=== PATIENT | female | born 1980 | race Caucasian/White ===

== ENCOUNTER 2017-02-07 10:24 | Outpatient (RCR) | payer MEDICAID ==
[~2017-02-07 10:24] MED LIST: AMOX500C2 PO; AZIT500T PO; BIRTH CONTROL PO; BUTA1TAB55 PO; CEPH500C PO; CYCL10TA9 PO; FLUC100T PO; HYDR-34 PO; HYDR-3812 PO; HYDR1TAB75 PO; IBP600T1 PO; IBP800T PO; IBUP800T26 PO; METR500T PO; NAPR-243 PO; NITR-65 PO; NITR100C PO; ONDA8TAB13 PO; PHEN200T27 PO; PREN1TAB39 PO; SULF1TAB38 PO; TRAM50TA2 PO
== END 2017-02-21 14:08 | disposition home or self-care (01) ==
PROVIDERS: ATTEND Nurse Practitioner
DX: M41.9 Scoliosis, unspecified (principal)

== ENCOUNTER 2017-03-06 10:10 | Emergency (ER) | payer MEDICAID ==
[~2017-03-06] VITALS: Ht 172.7 cm; Wt 104.3 kg
--- OUTSIDE RECORDS SUMMARY | 2017-03-06 10:15 | XMS REPORT | Continuity of Care Document ---
Author Author [facility] Organization [facility] Address Unknown Phone Unavailable Allergies Active Description Code Type Severity Reaction Onset Reported/Identified Relationship to Patient Clinical Status Yes No Known Drug Allergies [id number] Drug Allergy Unknown N/ A 05/01/2010 Medications Problems Date Dx Coded Attending Type Code Diagnosis Diagnosed By 01/30/2012 Ot 569.42 ANAL OR RECTAL PAIN 01/30/2012 Ot 922.4 CONTUSION GENITAL ORGANS 01/30/2012 Ot E000.8 OTHER EXTERNAL CAUSE STATUS 01/30/2012 Ot E928.9 ACCIDENT NOS 04/21/2012 Ot 724.2 LUMBAGO 04/21/2012 Ot 847.2 SPRAIN LUMBAR REGION 04/21/2012 Ot E000.8 OTHER EXTERNAL CAUSE STATUS 04/21/2012 Ot E927.0 OVEREXERTION FROM SUDDEN STRENUOUS MOVEM 06/02/2012 Ot 305.1 TOBACCO USE DISORDER 06/02/2012 Ot 511.0 PLEURISY W/O EFFUS OR TB 06/02/2012 Ot 786.50 CHEST PAIN NOS 12/10/2012 JANEEN DESAI MD Ot 599.0 URIN TRACT INFECTION NOS 12/10/2012 JANEEN DESAI MD Ot 625.9 FEM GENITAL SYMPTOMS NOS 12/10/2012 JANEEN DESAI MD Ot 640.03 THREATEN ABORT-ANTEPART 12/10/2012 JANEEN DESAI MD Ot 646.63 INFECTION-ANTEPARTUM 04/12/2013 MICHELLE DO, MERLENE K Ot 671.83 VENOUS COMPL NEC-ANTEPAR 12/02/2013 VALARIE ESCOBAR MD Ot 599.70 HEMATURIA, UNSPECIFIED 12/02/2013 VALARIE ESCOBAR MD Ot 789.00 ABDOMINAL PAIN, UNSPECIFIED SITE 02/08/2014 CHUCHO ART Ot 112.1 CANDIDAL VULVOVAGINITIS 02/08/2014 CHUCHO ART Ot 616.0 CERVICITIS 02/08/2014 CHUCHO ART Ot 625.9 FEM GENITAL SYMPTOMS NOS 05/06/2014 CHUCHO ART Ot 276.51 DEHYDRATION 05/06/2014 CHUCHO ART Ot 599.0 URIN TRACT INFECTION NOS 05/06/2014 CHUCHO ART Ot 724.5 BACKACHE NOS 08/04/2015 JANEEN DESAI MD Ot K80.20 CALCULUS OF GALLBLADDER W/O CHOLECYSTITI 08/04/2015 JANEEN DESAI MD Ot K85.9 ACUTE PANCREATITIS, UNSPECIFIED 01/10/2017 Ot 626.0 ABSENCE OF MENSTRUATION 01/31/2017 JAGUAR RAJPUT Ot M41.9 SCOLIOSIS, UNSPECIFIED 02/04/2017 JAGUAR RAJPUT Ot M41.9 SCOLIOSIS, UNSPECIFIED 02/23/2017 JAGUAR RAJPUT Ot M41.9 SCOLIOSIS, UNSPECIFIED Procedures Results Encounters ACCT No. Visit Date/Time Discharge Status Pt. Type Provider Facility Loc./Unit Complaint [id number] 02/07/2017 10:24:00 2016 14:08:00 DIS Outpatient JAGUAR RAJPUT [facility] REHAB BACK PAIN/STIFFNESS;KYPHOSIS; SCOLIOSIS [id number] 08/04/2015 06:37:00 2015 10:07:00 DIS Emergency JANEEN DESAI MD [facility] ER CHEST PAIN [id number] 05/06/2014 17:06:00 2013 18:24:00 DIS Emergency CHUCHO ART [facility] ER BACK PAIN [id number] 02/08/2014 16:29:00 2013 18:33:00 DIS Emergency CHUCHO ART [facility] ER POSS ABSCESS [id number] 12/02/2013 01:40:00 2013 03:16:00 DIS Emergency VALARIE ESCOBAR MD [facility] ER ABD/BACK PAIN [id number] 04/12/2013 21:55:00 2012 22:35:00 DIS Outpatient MERLENE MARTINEZ DO K [facility] WSo 25 WKS; BLEEDING [id number] 02/12/2013 16:14:00 2012 23:59:59 CLS Outpatient [id number] 12/09/2012 23:35:00 2012 01:02:00 DIS Emergency JANEEN DESAI MD [facility] ER 7 WKS PREG; LOWER ABD PAIN [id number] 06/27/2012 10:13:00 Document Registration [id number] 06/02/2012 07:40:00 Document Registration [id number] 04/21/2012 18:40:00 Document Registration [id number] 01/30/2012 06:45:00 Document Registration
[2017-03-06] MEDS ORDERED: PROP40TA5 (10:34)
[2017-03-06] MEDS ORDERED: TOPI100T11 (10:34)
[2017-03-06] MEDS ORDERED: SUMA100T3 (10:34)
[2017-03-06] MEDS ORDERED: TOPI50TA13 (10:34)
[2017-03-06] MEDS ORDERED: HYDR12.5 (10:34)
[2017-03-06] MEDS ORDERED: ARIP5TAB20 (10:34)
[2017-03-06] MEDS ORDERED: MELO15TA39 (10:34)
--- NOTE | 2017-03-06 11:04 | ED Abdominal Pain ---
General Chief Complaint: Abdominal/GI Problems Stated Complaint: R SIDE LOWER BACK PAIN/FREQUENT URINATION Nursing Triage Note: ARRIVED VIA AMB TO ROOM 07 WITH COMPLAINTS OF RIGHT SIDED ABD PAIN THAT STARTED AT 0700 TODAY. STATES IT FEELS LIKE A KIDNEY STONE. Sepsis Screen: No Definite Risk Source of Information: Patient Exam Limitations: No Limitations History of Present Illness Time Seen By Provider: 11:02 Initial Comments This 36-year-old white female presents with right-sided flank pain consistent with her previous kidney stones. The patient has had no fever or chill. She denies headache, stiff neck, productive cough, palpitations or chest pain, vomiting or diarrhea. Inpatient is complaining of severe sharp right flank pain that is nonradiating. Allergies and Home Medications Allergies Coded Allergies: No Known Drug Allergies (Unverified , 05/02/10) Home Medications Aripiprazole 5 Mg Tablet, (Reported) Hydrochlorothiazide 12.5 Mg Capsule, (Reported) Meloxicam 15 Mg Tablet, (Reported) Propranolol HCl 40 Mg Tablet, (Reported) Sumatriptan Succinate 100 Mg Tablet, (Reported) Topiramate 50 Mg Tablet, (Reported) Topiramate 100 Mg Tablet, (Reported) Review of Systems Constitutional: No chills, No fever, No weakness EENTM: No Blurred Vision Respiratory: Denies Cough Cardiovascular: Denies Chest Pain Gastrointestinal: See HPI, Nausea Genitourinary: Denies Burning, Denies Frequency, Flank Pain Musculoskeletal: back pain Skin: No rash Psychiatric/Neurological: No Symptoms Reported Endocrine: No Symptoms Reported Hematologic/Lymphatic: No Symptoms Reported Past Uulwgov-Viacdd-Eectob Hx Patient Social History Alcohol Use: Occasionally Uses Recreational Drug Use: No Smoking Status: Former Smoker Recent Foreign Travel: No Contact w/Someone Who Travel: No Recent Infectious Disease Expo: No Recent Hopitalizations: Yes (VAGINAL DELIVERIES X 2) Immunizations Up To Date Tetanus Booster (TDap): Unknown Date of Influenza Vaccine: Mar 13, 2014 Seasonal Allergies Seasonal Allergies: No Surgeries History of Surgeries: Yes Surgeries: Gallbladder Respiratory History of Respiratory Disorde: No Currently Using CPAP: No Currently Using BIPAP: No Cardiovascular History of Cardiac Disorders: Yes Cardiac Disorders: Hypertension Neurological History of Neurological Disord: No Reproductive System : No Hx Reproductive Disorders: 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 Genitourinary History of Genitourinary Disor: No Genitourinary Disorders: Kidney Stones, UTI-Chronic Gastrointestinal History of Gastrointestinal Di: No Musculoskeletal History of Musculoskeletal Dis: Yes (KYPHOSIS) Musculoskeletal Disorders: Chronic Back Pain Endocrine History of Endocrine Disorders: No Cancer History of Cancer: No Psychosocial History of Psychiatric Problem: Yes Behavioral Health Disorders: ADD/ADHD, Anxiety, Depression Integumentary History of Skin or Integumenta: No Blood Transfusions History of Blood Disorders: No Adverse Reaction to a Blood Tr: No Reviewed Nursing Assessment Reviewed/Agree w Nursing PMH: Yes Family Medical History Significant Family History: No Pertinent Family Hx Physical Exam Vital Signs VS - Last 72 Hours, by Label 03/06/17 10:20 Temp 98.0 Pulse 65 Resp 18 B/P (MAP) 121/72 Pulse Ox 98 Capillary Refill : Less Than 3 Seconds General Appearance: WD/WN, no apparent distress HEENT: normal ENT inspection Neck: non-tender, full range of motion Respiratory: chest non-tender, lungs clear Cardiovascular: regular rate, rhythm Gastrointestinal: normal bowel sounds, non tender, soft Extremities: normal range of motion, non-tender Back: normal inspection, CVA tenderness (R) Neurologic/Psychiatric: no motor/sensory deficits, alert, normal mood/affect, oriented x 3 Progress/Results/Core Measures Results/Orders Lab Results Laboratory Tests Test 03/06/17 10:20 03/06/17 11:30 Range/Units Urine Color YELLOW Urine Clarity VERY CLOUDY H Urine pH 5 5-9 Urine Specific [place] 1.025 H 1.016-1.022 Urine Protein 2+ H NEGATIVE Urine Glucose (UA) NEGATIVE NEGATIVE Urine Ketones 1+ H NEGATIVE Urine Nitrite POSITIVE H NEGATIVE Urine Bilirubin 1+ H NEGATIVE Urine Urobilinogen NORMAL NORMAL MG/DL Urine Leukocyte Esterase 2+ H NEGATIVE Urine RBC (Auto) 5+ H NEGATIVE Urine RBC TNTC H /HPF Urine WBC 5-10 H /HPF Urine Crystals NONE /LPF Urine Bacteria LARGE H /HPF Urine Casts PRESENT /LPF Urine White Blood Cell Casts RARE H /LPF Urine Mucus SMALL H /LPF Urine Yeast MODERATE H /HPF Urine Culture Indicated YES Urine Test NEGATIVE NEGATIVE White Blood Count 7.4 4.3-11.0 10^3/uL Red Blood Count 3.45 L 4.35-5.85 10^6/uL Hemoglobin 11.2 L 11.5-16.0 G/DL Hematocrit 33 L 35-52 % Mean Corpuscular Volume 96 80-99 FL Mean Corpuscular Hemoglobin 33 25-34 PG Mean Corpuscular Hemoglobin Concent 34 32-36 G/DL Red Cell Distribution Width 14.3 10.0-14.5 % Platelet Count 269 130-400 10^3/uL Mean Platelet Volume 10.6 H 7.4-10.4 FL Neutrophils (%) (Auto) 64 42-75 % Lymphocytes (%) (Auto) 24 12-44 % Monocytes (%) (Auto) 10 0-12 % Eosinophils (%) (Auto) 2 0-10 % Basophils (%) (Auto) 1 0-10 % Neutrophils # (Auto) 4.7 1.8-7.8 X 10^3 Lymphocytes # (Auto) 1.8 1.0-4.0 X 10^3 Monocytes # (Auto) 0.7 0.0-1.0 X 10^3 Eosinophils # (Auto) 0.1 0.0-0.3 10^3/uL Basophils # (Auto) 0.0 0.0-0.1 10^3/uL Sodium Level 140 135-145 MMOL/L Potassium Level 3.6 3.6-5.0 MMOL/L Chloride Level 109 H 98-107 MMOL/L Carbon Dioxide Level 22 21-32 MMOL/L Anion Gap 9 5-14 MMOL/L Blood Urea Nitrogen 25 H 7-18 MG/DL Creatinine 0.83 0.60-1.30 MG/DL Estimat Glomerular Filtration Rate > 60 BUN/Creatinine Ratio 30 Glucose Level 119 H 70-105 MG/DL Calcium Level 9.1 8.5-10.1 MG/DL Total Bilirubin 0.4 0.1-1.0 MG/DL Aspartate Amino Transf (AST/SGOT) 14 5-34 U/L Alanine Aminotransferase (ALT/SGPT) 26 0-55 U/L Alkaline Phosphatase 61 40-136 U/L Total Protein 6.6 6.4-8.2 GM/DL Albumin 3.6 3.2-4.5 GM/DL My Orders Orders - ALVERTO VIZCAINO MD Ct Abd/Pelvis Wo(Kidney Stone) (03/06/17 11:05) Fentanyl Injection (Sublimaze Injection (03/06/17 11:15) Ondansetron Injection (Zofran Injectio (03/06/17 11:15) Hcg,Qualitative Urine (03/06/17 10:20) Ceftriaxone Injection (Rocephin Injectio (03/06/17 12:30) Medications Given in ED Current Medications Medications Dose Ordered Sig/Radha Route Start Time Stop Time Status Last Admin Dose Admin Ceftriaxone Sodium 2000 mg/ Sodium Chloride 50 ml @ 100 mls/hr ONCE ONCE IV 03/06/17 12:30 03/06/17 12:59 DC 03/06/17 12:57 100 MLS/HR Fentanyl Citrate 50 mcg ONCE ONCE IVP 03/06/17 11:15 03/06/17 11:16 DC 03/06/17 11:31 50 MCG Ondansetron HCl 4 mg ONCE ONCE IVP 03/06/17 11:15 03/06/17 11:16 DC 03/06/17 11:32 4 MG Vital Signs/I&O Vital Sign - Last 12Hours 03/06/17 10:20 Temp 98.0 Pulse 65 Resp 18 B/P (MAP) 121/72 Pulse Ox 98 Blood Pressure Mean: 88 Progress Note : Time: 13:37 Progress Note The patient demonstrated a significant urinary tract infection. The patient's CT of the abdomen for kidney stone demonstrated an obstructing kidney stone. Patient received 2 g of Rocephin IV. Departure Impression Impression: Primary Impression: Pyelonephritis Additional Impression: Kidney stone on right side Disposition: 01 HOME, SELF-CARE Condition: Improved Departure-Patient Inst. Decision time for Depature: 13:40 Referrals: ANGELICA MENDES MD (PCP) Primary Care Physician SANDOVAL THOMAS MD Patient Instructions: Kidney Stones in Adults, Urinary Tract Infection, Adult ( DC) Add. Discharge Instructions: Keflex and Vicodin as prescribed. Close follow-up with your doctor or Dr. Thomas early next week. Return if any problems or questions. All discharge instructions reviewed with patient and/or family. Voiced understanding. ALVERTO VIZCAINO MD Mar 06, 2017 11:04
[2017-03-06] MEDS ORDERED: ONDANSETRON 4 MG/2 ML (SDV) Z0FRAN IVP ONE ×2 (11:15→14:00)
[2017-03-06] MEDS ORDERED: fentaNYL INJECTION 100 MCG/2 ML AMP IVP ONE (11:15)
[2017-03-06 11:42] LABS: KETONES,URINE 1+ (NEGATIVE); LEUKOCYTE ESTERASE ,URINE 2+ (NEGATIVE); NITRITE,URINE POSITIVE (NEGATIVE); PH,URINE 5 (5-9); PROTEIN,URINE 2+ (NEGATIVE); UROBILINOGEN,URINE NORMAL (NORMAL)
[2017-03-06 11:44] LABS: BASOPHILS % (AUTO) 1 % (0-10); EOSINOPHILS # (AUTO) 0.1 10^3/uL (0.0-0.3); EOSINOPHILS % (AUTO) 2 % (0-10); LYMPHOCYTES # (AUTO) 1.8 X 10^3 (1.0-4.0); LYMPHOCYTES % (AUTO) 24 % (12-44); MEAN CORPUSCULAR HEMOGLOBIN 33 PG (25-34); MEAN CORPUSCULAR HGB CONC 34 G/DL (32-36); MEAN CORPUSCULAR VOLUME 96 FL (80-99); MEAN PLATELET VOLUME 10.6 FL (7.4-10.4); MONOCYTES # (AUTO) 0.7 X 10^3 (0.0-1.0); MONOCYTES % (AUTO) 10 % (0-12); NEUTROPHILS # (AUTO) 4.7 X 10^3 (1.8-7.8); NEUTROPHILS % (AUTO) 64 % (42-75); PLATELET COUNT 269 10^3/uL (130-400); RED BLOOD COUNT 3.45 10^6/uL (4.35-5.85); RED CELL DISTRIBUTION WIDTH 14.3 % (10.0-14.5); WHITE BLOOD COUNT 7.4 10^3/uL (4.3-11.0)
[2017-03-06 11:53] LABS: WHITE BLOOD CELL CASTS, URINE RARE /LPF
[2017-03-06 11:54] LABS: YEAST,URINE MODERATE /HPF
[2017-03-06 12:07] LABS: ALANINE AMINOTRANSFERASE 26 U/L (0-55); ALBUMIN 3.6 GM/DL (3.2-4.5); ANION GAP 9 MMOL/L (5-14); ASPARTATE AMINO TRANSFERASE 14 U/L (5-34); BILIRUBIN,TOTAL 0.4 MG/DL (0.1-1.0); BLOOD UREA NITROGEN 25 MG/DL (7-18); BUN/CREATININE RATIO 30; CALCIUM 9.1 MG/DL (8.5-10.1); CARBON DIOXIDE 22 MMOL/L (21-32); CHLORIDE 109 MMOL/L (98-107); CREATININE SERUM 0.83 MG/DL (0.60-1.30); GFR ESTIMATED > 60; GLUCOSE 119 MG/DL (70-105); POTASSIUM 3.6 MMOL/L (3.6-5.0); SODIUM 140 MMOL/L (135-145); TOTAL PROTEIN 6.6 GM/DL (6.4-8.2)
--- NOTE | 2017-03-06 12:19 | Diagnostic Imaging Report ---
PROCEDURE: CT urinary tract, rule out kidney stone. TECHNIQUE: Multiple contiguous axial images were obtained through the abdomen and pelvis without the use of intravenous contrast. INDICATION: One day history of right flank pain. CORRELATION STUDY: 08/04/2015 FINDINGS: LIVER: Unremarkable. GALLBLADDER: Absent with clips in the fossa. SPLEEN: Unremarkable. PANCREAS: Unremarkable. ADRENAL GLANDS: Unremarkable. KIDNEYS: 3 mm stone in the distal aspect of the left ureter just proximal to the ureterovesical junction results in mild obstructive uropathy. The right kidney is mild to moderately engorged. Left kidney contains several 2-3 mm nonobstructing stones. Left collecting system unremarkable. ABDOMINAL AORTA: Unremarkable, nonaneurysmal. GASTROINTESTINAL TRACT: No obstruction or inflammation. Normal appendix. URINARY BLADDER: Relatively decompressed. REPRODUCTIVE: Uterus contains an intrauterine contraceptive device. There is abnormal fullness of the right ovary likely a cyst measuring approximately 4 cm. Left ovary also slightly prominent. No free pelvic fluid. OSSEOUS STRUCTURES: No acute abnormality. IMPRESSION: 1. Mild right-sided obstructive uropathy owing to an approximately 3 mm stone in the distal right ureter. 2. Nonobstructing left renal stones present. 3. Enlarged right ovary likely owing to approximately 4 cm cyst. 4. Interval cholecystectomy changes. Dictated by: Dictated on workstation # [id number]
[2017-03-06] MEDS ORDERED: cefTRIAXone INJECTION 2,000 MG in NS (IVPB) 50 ML IV ONE (12:30)
[2017-03-06 14:10] VITALS: BP 140/71
[2017-03-07 07:01] LABS: BILIRUBIN,URINE 1+ (NEGATIVE)
== END 2017-03-06 14:10 | disposition home or self-care (01) ==
LOC: EDUNIT# 10:10 → ER 10:11
DX: N20.0 Calculus of kidney (principal); I10 Essential (primary) hypertension; F90.9 Attention-deficit hyperactivity disorder, unspecified type; F41.9 Anxiety disorder, unspecified; F32.9 Major depressive disorder, single episode, unspecified; Z97.5 Presence of (intrauterine) contraceptive device; Z87.440 Personal history of urinary (tract) infections; Z87.891 Personal history of nicotine dependence
CPT/HCPCS: 36415; 74176; 80053; 81000; 84703; 85025; 87088

== ENCOUNTER 2017-03-18 02:14 | Emergency (ER) | payer MEDICAID ==
[~2017-03-18] VITALS: Ht 172.7 cm; Wt 106.6 kg
[~2017-03-18 02:14] MED LIST changes: +ARIP5TAB20; +HYDR12.5; +MELO15TA39; +PROP40TA5; +SUMA100T3; +TOPI100T11; +TOPI50TA13
--- NOTE | 2017-03-18 03:06 | ED GI ---
General Chief Complaint: General Problems/Pain Stated Complaint: CHILLS THEN HOT,NAUSEA,DIZZY,DIARRHEA Nursing Triage Note: PT TO ED 9 W/ C/O "FLU LIKE SYMPTOMS". C/O NAUSEA, BELCHING ET DIARRHEA FOR A "COUPLE OF DAYS". ALSO REPORTS SHE THINKS HER BOYFRIEND "DISLODGED HER IUD" AND MAY BE . NO OTHER C/O VOICED Sepsis Screen: No Definite Risk Source of Information: Patient Exam Limitations: No Limitations History of Present Illness Time Seen By Provider: 02:57 Initial Comments Patient presents to ER by private conveyance with a chief complaint that for the past 2-3 days she's been having progressively worsening malaise, body aches and loose stools with some nausea. She's not had any vomiting but she had a bout of abdominal discomfort and diarrhea tonight without any blood in it or black tarry parents that concerned her so she said That the ER. She has Zofran at home but has not taken any. No significant surgical history other than having her gallbladder removed. No other significant medical history. She says she had her flu shot this year. She's had chills but notes objective fever. No sick contacts. She is unsure if she could be as she thinks her boyfriend may have dislodged her IUD. Patient recently had a kidney stone was put on antibiotics which she just completed yesterday. Allergies and Home Medications Allergies Coded Allergies: No Known Drug Allergies (Unverified , 05/02/10) Home Medications Aripiprazole 5 Mg Tablet, (Reported) Hydrochlorothiazide 12.5 Mg Capsule, (Reported) Meloxicam 15 Mg Tablet, (Reported) Propranolol HCl 40 Mg Tablet, (Reported) Sumatriptan Succinate 100 Mg Tablet, (Reported) Topiramate 50 Mg Tablet, (Reported) Topiramate 100 Mg Tablet, (Reported) Review of Systems Constitutional: chills, No diaphoresis, No fever, malaise EENTM: No Blurred Vision, No Double Vision, No Eye Pain Respiratory: Denies Cough, Denies Shortness of Air Cardiovascular: Denies Chest Pain, Denies Lightheadedness Gastrointestinal: Denies Abdomen Distended, Denies Abdominal Pain, Denies Constipated, Diarrhea, Nausea, Denies Vomiting Genitourinary: Denies Burning, Denies Discharge Musculoskeletal: No back pain, No joint pain Skin: No pruritus, No rash Psychiatric/Neurological: Denies Headache, Denies Numbness, Denies Paresthesia Past Mbbmkkd-Ttznts-Apsybg Hx Patient Social History Alcohol Use: Occasionally Uses Recreational Drug Use: No Smoking Status: Former Smoker Former Smoker, Quit: Dec 14, 2016 Recent Foreign Travel: No Contact w/Someone Who Travel: No Recent Infectious Disease Expo: No Recent Hopitalizations: Yes (VAGINAL DELIVERIES X 2) Physical Abuse: No Sexual Abuse: No Mistreated: No Fear: No Immunizations Up To Date Tetanus Booster (TDap): Unknown Date of Influenza Vaccine: Mar 13, 2014 Seasonal Allergies Seasonal Allergies: No Surgeries History of Surgeries: Yes Surgeries: Gallbladder Respiratory History of Respiratory Disorde: No Currently Using CPAP: No Currently Using BIPAP: No Cardiovascular History of Cardiac Disorders: Yes Cardiac Disorders: Hypertension Neurological History of Neurological Disord: No Reproductive System Hx Reproductive Disorders: 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 Genitourinary History of Genitourinary Disor: No Genitourinary Disorders: Kidney Stones, UTI-Chronic Gastrointestinal History of Gastrointestinal Di: No Musculoskeletal History of Musculoskeletal Dis: Yes (KYPHOSIS) Musculoskeletal Disorders: Chronic Back Pain Endocrine History of Endocrine Disorders: No Cancer History of Cancer: No Psychosocial History of Psychiatric Problem: Yes (PSYCHOTIC EPISODES) Behavioral Health Disorders: ADD/ADHD, Anxiety, Depression Suicide Risk Score: 0 Integumentary History of Skin or Integumenta: No Blood Transfusions History of Blood Disorders: No Adverse Reaction to a Blood Tr: No Family Medical History Significant Family History: No Pertinent Family Hx Physical Exam Vital Signs VS - Last 72 Hours, by Label 03/18/17 02:44 Temp 95.1 Pulse 71 Resp 18 B/P (MAP) 119/80 Pulse Ox 99 O2 Delivery Room Air Capillary Refill : Less Than 3 Seconds General Appearance: no apparent distress HEENT: PERRL/EOMI, pharynx normal Neck: non-tender, full range of motion, supple Respiratory: chest non-tender, lungs clear, normal breath sounds Cardiovascular: normal peripheral pulses, regular rate, rhythm, no edema Gastrointestinal: normal bowel sounds, soft, no organomegaly, No distended, No guarding, No rebound, tenderness (mild diffuse tenderness left lower quadrant and left upper quadrant.) Extremities: normal range of motion, non-tender, no pedal edema, normal capillary refill Back: normal inspection, no CVA tenderness, no vertebral tenderness Neurologic/Psychiatric: alert, oriented x 3 Skin: normal color, warm/dry Progress/Results/Core Measures Results/Orders Lab Results Laboratory Tests Test 03/18/17 03:03 03/18/17 03:10 Range/Units Urine Color YELLOW Urine Clarity CLEAR Urine pH 6 5-9 Urine Specific [place] 1.020 1.016-1.022 Urine Protein 1+ H NEGATIVE Urine Glucose (UA) NEGATIVE NEGATIVE Urine Ketones NEGATIVE NEGATIVE Urine Nitrite NEGATIVE NEGATIVE Urine Bilirubin NEGATIVE NEGATIVE Urine Urobilinogen NORMAL NORMAL MG/DL Urine Leukocyte Esterase 3+ H NEGATIVE Urine RBC (Auto) 2+ H NEGATIVE Urine RBC 5-10 H /HPF Urine WBC 10-25 H /HPF Urine Squamous Epithelial Cells 10-25 H /HPF Urine Crystals NONE /LPF Urine Bacteria FEW H /HPF Urine Casts NONE /LPF Urine Mucus NEGATIVE /LPF Urine Culture Indicated YES White Blood Count 6.8 4.3-11.0 10^3/uL Red Blood Count 3.42 L 4.35-5.85 10^6/uL Hemoglobin 11.2 L 11.5-16.0 G/DL Hematocrit 33 L 35-52 % Mean Corpuscular Volume 98 80-99 FL Mean Corpuscular Hemoglobin 33 25-34 PG Mean Corpuscular Hemoglobin Concent 34 32-36 G/DL Red Cell Distribution Width 13.8 10.0-14.5 % Platelet Count 342 130-400 10^3/uL Mean Platelet Volume 10.2 7.4-10.4 FL Neutrophils (%) (Auto) 65 42-75 % Lymphocytes (%) (Auto) 25 12-44 % Monocytes (%) (Auto) 7 0-12 % Eosinophils (%) (Auto) 3 0-10 % Basophils (%) (Auto) 0 0-10 % Neutrophils # (Auto) 4.4 1.8-7.8 X 10^3 Lymphocytes # (Auto) 1.7 1.0-4.0 X 10^3 Monocytes # (Auto) 0.5 0.0-1.0 X 10^3 Eosinophils # (Auto) 0.2 0.0-0.3 10^3/uL Basophils # (Auto) 0.0 0.0-0.1 10^3/uL Sodium Level 140 135-145 MMOL/L Potassium Level 4.2 3.6-5.0 MMOL/L Chloride Level 110 H 98-107 MMOL/L Carbon Dioxide Level 21 21-32 MMOL/L Anion Gap 9 5-14 MMOL/L Blood Urea Nitrogen 15 7-18 MG/DL Creatinine 0.78 0.60-1.30 MG/DL Estimat Glomerular Filtration Rate > 60 BUN/Creatinine Ratio 19 Glucose Level 119 H 70-105 MG/DL Calcium Level 8.9 8.5-10.1 MG/DL Total Bilirubin 0.2 0.1-1.0 MG/DL Aspartate Amino Transf (AST/SGOT) 18 5-34 U/L Alanine Aminotransferase (ALT/SGPT) 26 0-55 U/L Alkaline Phosphatase 59 40-136 U/L Total Protein 6.7 6.4-8.2 GM/DL Albumin 3.7 3.2-4.5 GM/DL My Orders Orders - ERNESTINA MIRAMONTES Cbc With Automated Diff (03/18/17 03:01) Comprehensive Metabolic Panel (03/18/17 03:01) Ua Culture If Indicated (03/18/17 03:01) Ondansetron Oral Dissolve Tab (Zofran (03/18/17 03:15) Urine Bedside (03/18/17 03:01) Urine Culture (03/18/17 03:03) Medications Given in ED Current Medications Medications Dose Ordered Sig/Radha Route Start Time Stop Time Status Last Admin Dose Admin Ondansetron HCl 4 mg ONCE ONCE PO 03/18/17 03:15 03/18/17 03:16 DC 03/18/17 03:00 4 MG Vital Signs/I&O Vital Sign - Last 12Hours 03/18/17 02:44 Temp 95.1 Pulse 71 Resp 18 B/P (MAP) 119/80 Pulse Ox 99 O2 Delivery Room Air Blood Pressure Mean: 93 Progress Note #1: Time: 03:05 Progress Note Gastroenteritis versus UTI Progress Note #2: Time: 03:55 Progress Note Review the note from last ER visit. She had a obstructing kidney stones, Keflex. Escherichia coli and group B strep less than 10,000 CFU's each grew out. Keflex would've covered for both. We'll treat her empirically with Macrobid and obtain a culture. Departure Impression Impression: Primary Impression: Gastroenteritis and colitis, viral Additional Impression: UTI (urinary tract infection) Qualified Codes: N30.00 - Acute cystitis without hematuria Disposition: HOME, SELF-CARE Condition: Stable Departure-Patient Inst. Decision time for Depature: 03:56 Referrals: ANGELICA MENDES MD (PCP/Family) Primary Care Physician Patient Instructions: Urinary Tract Infection, Adult (DC), Viral Gastroenteritis, Adult (DC) Add. Discharge Instructions: Drink lots of fluids and use the Zofran if you're having nausea. Start the antibiotics tomorrow morning along with one capsule of probiotics twice a day. All discharge instructions reviewed with patient and/or family. Voiced understanding. Scripts Nitrofurantoin Macrocrystal (Nitrofurantoin) 100 Mg Capsule 100 MG PO BID, #14 CAP 0 Refills Prov: ERNESTINA MIRAMONTES 03/18/17 ERNESTINA MIRAMONTES Mar 18, 2017 03:06
[2017-03-18 03:10] LABS: BILIRUBIN,URINE NEGATIVE (NEGATIVE); KETONES,URINE NEGATIVE (NEGATIVE); LEUKOCYTE ESTERASE ,URINE 3+ (NEGATIVE); NITRITE,URINE NEGATIVE (NEGATIVE); PH,URINE 6 (5-9); PROTEIN,URINE 1+ (NEGATIVE); UROBILINOGEN,URINE NORMAL (NORMAL)
[2017-03-18] MEDS ORDERED: ONDANSETRON 4 MG (ZOFRAN) ORAL DISSOLVE TAB PO ONE (03:15)
[2017-03-18 03:17] LABS: BASOPHILS % (AUTO) 0 % (0-10); EOSINOPHILS # (AUTO) 0.2 10^3/uL (0.0-0.3); EOSINOPHILS % (AUTO) 3 % (0-10); LYMPHOCYTES # (AUTO) 1.7 X 10^3 (1.0-4.0); LYMPHOCYTES % (AUTO) 25 % (12-44); MEAN CORPUSCULAR HEMOGLOBIN 33 PG (25-34); MEAN CORPUSCULAR HGB CONC 34 G/DL (32-36); MEAN CORPUSCULAR VOLUME 98 FL (80-99); MEAN PLATELET VOLUME 10.2 FL (7.4-10.4); MONOCYTES # (AUTO) 0.5 X 10^3 (0.0-1.0); MONOCYTES % (AUTO) 7 % (0-12); NEUTROPHILS # (AUTO) 4.4 X 10^3 (1.8-7.8); NEUTROPHILS % (AUTO) 65 % (42-75); PLATELET COUNT 342 10^3/uL (130-400); RED BLOOD COUNT 3.42 10^6/uL (4.35-5.85); RED CELL DISTRIBUTION WIDTH 13.8 % (10.0-14.5); WHITE BLOOD COUNT 6.8 10^3/uL (4.3-11.0)
[2017-03-18 03:35] LABS: ALANINE AMINOTRANSFERASE 26 U/L (0-55); ALBUMIN 3.7 GM/DL (3.2-4.5); ANION GAP 9 MMOL/L (5-14); ASPARTATE AMINO TRANSFERASE 18 U/L (5-34); BILIRUBIN,TOTAL 0.2 MG/DL (0.1-1.0); BLOOD UREA NITROGEN 15 MG/DL (7-18); BUN/CREATININE RATIO 19; CALCIUM 8.9 MG/DL (8.5-10.1); CARBON DIOXIDE 21 MMOL/L (21-32); CHLORIDE 110 MMOL/L (98-107); CREATININE SERUM 0.78 MG/DL (0.60-1.30); GFR ESTIMATED > 60; GLUCOSE 119 MG/DL (70-105); POTASSIUM 4.2 MMOL/L (3.6-5.0); SODIUM 140 MMOL/L (135-145); TOTAL PROTEIN 6.7 GM/DL (6.4-8.2)
[2017-03-18] MEDS ORDERED: RX-ONDANSETRON 4 MG ODT (ZOFRAN) PPK #4 ONE (03:55)
[2017-03-18] MEDS ORDERED: NITR100C PO (03:57)
[2017-03-18] MEDS ORDERED: RX-ONDANSETRON 4 MG ODT (ZOFRAN) PPK #4 PO STA (04:01)
[2017-03-18 04:05] VITALS: BP 0/0
== END 2017-03-18 04:05 | disposition home or self-care (01) ==
LOC: EDUNIT# 02:14 → ER 02:17
DX: A08.4 Viral intestinal infection, unspecified (principal); N39.0 Urinary tract infection, site not specified; I10 Essential (primary) hypertension; F41.9 Anxiety disorder, unspecified; F32.9 Major depressive disorder, single episode, unspecified; F90.9 Attention-deficit hyperactivity disorder, unspecified type; Z97.5 Presence of (intrauterine) contraceptive device; Z87.442 Personal history of urinary calculi; Z87.891 Personal history of nicotine dependence
CPT/HCPCS: 36415; 80053; 81000; 84703; 85025; 87088; 99283

== ENCOUNTER 2017-04-13 07:50 | Emergency (ER) | payer MEDICAID ==
[~2017-04-13] VITALS: Ht 172.7 cm; Wt 108.9 kg
[2017-04-13] MEDS ORDERED: ONDANSETRON 4 MG (ZOFRAN) ORAL DISSOLVE TAB SL ONE (08:00)
[2017-04-13] MEDS ORDERED: HYOSCYAMINE 0.125 MG (LEVSIN) TAB SL ONE (08:00)
[2017-04-13] MEDS ORDERED: ANTACID SUSP 30 ML UDC (MYLANTA) PO ONE (08:00)
[2017-04-13] MEDS ORDERED: LIDOCAINE 2% VISCOUS 15 ML UDC PO ONE (08:00)
[2017-04-13] MEDS ORDERED: NS IV 1000 ML 1,000 ML IV ONE (08:29)
[2017-04-13] MEDS ORDERED: PROMETHAZINE INJ 25 MG/ML (PHENERGAN) AMP IVP ONE (08:30)
[2017-04-13] MEDS ORDERED: FAMOTIDINE 20MG/2ML IV (PEPCID) IVP ONE (08:30)
--- NOTE | 2017-04-13 08:32 | ED Abdominal Pain ---
General Chief Complaint: Abdominal/GI Problems Stated Complaint: CP Nursing Triage Note: AMB TO ED TOLD SLABBER LIGHT SHE WAS HAVING CHEST PAIN. POINTS TO EPIGASTRIC AREA. Sepsis Screen: No Definite Risk Source of Information: Patient Exam Limitations: No Limitations History of Present Illness Time Seen By Provider: 07:51 Initial Comments This 36-year-old woman presents to the emergency room with complaints of epigastric pain that radiates up into the chest started that about one hour ago. Pain is worse with palpation and with deep inspiration. She does have history of acid reflux and takes ranitidine. She has had some nausea with diarrhea and cramping. She last ate solids last night. She also has a history of costochondritis. No fever. Allergies and Home Medications Allergies Coded Allergies: No Known Drug Allergies (Unverified , 05/02/10) Home Medications Aripiprazole 5 Mg Tablet, (Reported) Hydrochlorothiazide 12.5 Mg Capsule, (Reported) Meloxicam 15 Mg Tablet, (Reported) Nitrofurantoin Macrocrystal 100 Mg Capsule, 100 MG PO BID, #14 Ref 0 Prescribed by: ERNESTINA MIRAMONTES on 03/18/17 0357 Ondansetron 4 Mg Tab.rapdis, 4 MG SL Q4H PRN for NAUSEA/VOMITING-1ST LINE, #10 Prescribed by: VALARIE LEDBETTER on 04/13/17 0959 Propranolol HCl 40 Mg Tablet, (Reported) Sumatriptan Succinate 100 Mg Tablet, (Reported) Topiramate 50 Mg Tablet, (Reported) Topiramate 100 Mg Tablet, (Reported) Review of Systems Constitutional: no symptoms reported EENTM: No Symptoms Reported Respiratory: See HPI Cardiovascular: No Symptoms Reported Gastrointestinal: See HPI Genitourinary: No Symptoms Reported Musculoskeletal: no symptoms reported Skin: no symptoms reported Psychiatric/Neurological: No Symptoms Reported Endocrine: No Symptoms Reported Hematologic/Lymphatic: No Symptoms Reported Past Piqsugj-Rmmeum-Iaudbl Hx Patient Social History Alcohol Use: Denies Use Recreational Drug Use: No Former Smoker, Quit: Dec 14, 2016 Recent Foreign Travel: No Contact w/Someone Who Travel: No Recent Infectious Disease Expo: No Recent Hopitalizations: Yes (VAGINAL DELIVERIES X 2) Immunizations Up To Date Tetanus Booster (TDap): Unknown Date of Influenza Vaccine: Mar 13, 2014 Seasonal Allergies Seasonal Allergies: No Surgeries History of Surgeries: Yes Surgeries: Gallbladder Respiratory History of Respiratory Disorde: No Currently Using CPAP: No Currently Using BIPAP: No Cardiovascular History of Cardiac Disorders: Yes Cardiac Disorders: Hypertension Neurological History of Neurological Disord: No Reproductive System : No Last Menstrual Period: Mar 27, 2017 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 Genitourinary History of Genitourinary Disor: Yes Genitourinary Disorders: Kidney Stones, UTI-Chronic Gastrointestinal History of Gastrointestinal Di: Yes Gastrointestinal Disorders: Gastroesophageal Reflux Musculoskeletal History of Musculoskeletal Dis: Yes (KYPHOSIS) Musculoskeletal Disorders: Chronic Back Pain Endocrine History of Endocrine Disorders: No HEENT History of HEENT Disorders: No Cancer History of Cancer: No Psychosocial History of Psychiatric Problem: Yes (PSYCHOTIC EPISODES) Behavioral Health Disorders: ADD/ADHD, Anxiety, Depression Integumentary History of Skin or Integumenta: No Blood Transfusions History of Blood Disorders: No Adverse Reaction to a Blood Tr: No Family Medical History Significant Family History: No Pertinent Family Hx Physical Exam Vital Signs VS - Last 72 Hours, by Label 04/13/17 04/13/17 07:50 10:06 Temp 96.7 Pulse 57 52 Resp 18 18 B/P (MAP) 157/96 Pulse Ox 98 O2 Delivery Room Air Capillary Refill : Less Than 3 Seconds General Appearance: WD/WN, no apparent distress HEENT: PERRL/EOMI, normal ENT inspection, pharynx normal Neck: normal inspection Respiratory: lungs clear, normal breath sounds, no respiratory distress, no accessory muscle use Cardiovascular: regular rate, rhythm, no edema, no murmur Gastrointestinal: normal bowel sounds, soft, tenderness (Epigastric area) Neurologic/Psychiatric: personal caregiver II-XII nml as tested, no motor/sensory deficits, alert, normal mood/affect, oriented x 3 Skin: normal color, warm/dry Progress/Results/Core Measures Results/Orders Lab Results Laboratory Tests Test 04/13/17 09:04 Range/Units White Blood Count 10.1 4.3-11.0 10^3/uL Red Blood Count 3.78 L 4.35-5.85 10^6/uL Hemoglobin 12.6 11.5-16.0 G/DL Hematocrit 37 35-52 % Mean Corpuscular Volume 98 80-99 FL Mean Corpuscular Hemoglobin 33 25-34 PG Mean Corpuscular Hemoglobin Concent 34 32-36 G/DL Red Cell Distribution Width 13.1 10.0-14.5 % Platelet Count 348 130-400 10^3/uL Mean Platelet Volume 10.0 7.4-10.4 FL Neutrophils (%) (Auto) 76 H 42-75 % Lymphocytes (%) (Auto) 17 12-44 % Monocytes (%) (Auto) 6 0-12 % Eosinophils (%) (Auto) 0 0-10 % Basophils (%) (Auto) 0 0-10 % Neutrophils # (Auto) 7.7 1.8-7.8 X 10^3 Lymphocytes # (Auto) 1.7 1.0-4.0 X 10^3 Monocytes # (Auto) 0.6 0.0-1.0 X 10^3 Eosinophils # (Auto) 0.0 0.0-0.3 10^3/uL Basophils # (Auto) 0.0 0.0-0.1 10^3/uL Sodium Level 138 135-145 MMOL/L Potassium Level 4.1 3.6-5.0 MMOL/L Chloride Level 109 H 98-107 MMOL/L Carbon Dioxide Level 19 L 21-32 MMOL/L Anion Gap 10 5-14 MMOL/L Blood Urea Nitrogen 18 7-18 MG/DL Creatinine 0.75 0.60-1.30 MG/DL Estimat Glomerular Filtration Rate > 60 BUN/Creatinine Ratio 24 Glucose Level 95 70-105 MG/DL Calcium Level 9.0 8.5-10.1 MG/DL Total Bilirubin 0.5 0.1-1.0 MG/DL Aspartate Amino Transf (AST/SGOT) 75 H 5-34 U/L Alanine Aminotransferase (ALT/SGPT) 48 0-55 U/L Alkaline Phosphatase 53 40-136 U/L Total Protein 7.5 6.4-8.2 GM/DL Albumin 4.0 3.2-4.5 GM/DL Lipase 53 8-78 U/L Serum Test, Qualitative NEGATIVE NEGATIVE My Orders Orders - VALARIE ESCOBAR MD Hyoscyamine Sl Tablet (Levsin Sl Tablet) (04/13/17 08:00) Ondansetron Oral Dissolve Tab (Zofran (04/13/17 08:00) Lidocaine 2% Viscous 15 Ml (Xylocaine Vi (04/13/17 08:00) Antacid Suspension (Mylanta Suspension (04/13/17 08:00) Promethazine Injection (Phenergan Injec (04/13/17 08:30) Saline Lock/Iv-Start (04/13/17 08:29) Ns Iv 1000 Ml (Sodium Chloride 0.9%) (04/13/17 08:29) Cbc With Automated Diff (04/13/17 08:29) Comprehensive Metabolic Panel (04/13/17 08:29) Hcg,Qualitative Serum (04/13/17 08:29) Lipase (04/13/17 08:29) Famotidine Injection (Pepcid Injection) (04/13/17 08:30) Medications Given in ED Vital Signs/I&O Vital Sign - Last 12Hours 04/13/17 04/13/17 07:50 10:06 Temp 96.7 Pulse 57 52 Resp 18 18 B/P (MAP) 157/96 Pulse Ox 98 O2 Delivery Room Air Blood Pressure Mean: 116 Progress Note #1: Time: 08:31 Progress Note Patient is vomiting after Levsin, Zofran, and GI cocktail. IV will be established with IV fluids and Phenergan. Labs will be evaluated. Pepcid will be administered as well. Progress Note #2: Progress Note Workup was unremarkable and patient felt much better with the additional treatment. She was discharged home with prescriptions. Departure Impression Impression: Primary Impression: Upper abdominal pain Additional Impression: Nausea vomiting and diarrhea Disposition: 01 HOME, SELF-CARE Condition: Improved Departure-Patient Inst. Decision time for Depature: 09:55 Referrals: ANGELICA MENDES MD (PCP/Family) Primary Care Physician Patient Instructions: Acute Abdomen (Belly Pain), Adult (DC) Add. Discharge Instructions: Drink plenty of clear liquids. Gradually advance your diet with small quantities of bland food as tolerated. Dissolve the Zofran (ondansetron) under your tongue every 4 hours as needed for nausea and vomiting. Use an antacid medication such as Pepcid (famotidine) or Prilosec (omeprazole) purchased over- the-counter as long as upper abdominal pain persists. You may use Imodium for diarrhea. You also may use Tylenol (acetaminophen) up to 1000 mg every 6 hours as needed for additional pain relief. Return to care if symptoms worsen. All discharge instructions reviewed with patient and/or family. Voiced understanding. Scripts Ondansetron (Zofran Odt) 4 Mg Tab.rapdis 4 MG SL Q4H Y for NAUSEA/VOMITING-1ST LINE, #10 TAB Prov: VALARIE ESCOBAR MD 04/13/17 VALARIE ESCOBAR MD Apr 13, 2017 08:32
[2017-04-13 09:29] LABS: BASOPHILS % (AUTO) 0 % (0-10); EOSINOPHILS % (AUTO) 0 % (0-10); LYMPHOCYTES # (AUTO) 1.7 X 10^3 (1.0-4.0); LYMPHOCYTES % (AUTO) 17 % (12-44); MEAN CORPUSCULAR HEMOGLOBIN 33 PG (25-34); MEAN CORPUSCULAR HGB CONC 34 G/DL (32-36); MEAN CORPUSCULAR VOLUME 98 FL (80-99); MONOCYTES # (AUTO) 0.6 X 10^3 (0.0-1.0); MONOCYTES % (AUTO) 6 % (0-12); NEUTROPHILS # (AUTO) 7.7 X 10^3 (1.8-7.8); NEUTROPHILS % (AUTO) 76 % (42-75); PLATELET COUNT 348 10^3/uL (130-400); RED BLOOD COUNT 3.78 10^6/uL (4.35-5.85); RED CELL DISTRIBUTION WIDTH 13.1 % (10.0-14.5); WHITE BLOOD COUNT 10.1 10^3/uL (4.3-11.0)
[2017-04-13 09:42] LABS: ALANINE AMINOTRANSFERASE 48 U/L (0-55); ANION GAP 10 MMOL/L (5-14); ASPARTATE AMINO TRANSFERASE 75 U/L (5-34); BILIRUBIN,TOTAL 0.5 MG/DL (0.1-1.0); BLOOD UREA NITROGEN 18 MG/DL (7-18); BUN/CREATININE RATIO 24; CARBON DIOXIDE 19 MMOL/L (21-32); CHLORIDE 109 MMOL/L (98-107); CREATININE SERUM 0.75 MG/DL (0.60-1.30); GFR ESTIMATED > 60; GLUCOSE 95 MG/DL (70-105); LIPASE 53 U/L (8-78); SODIUM 138 MMOL/L (135-145); TOTAL PROTEIN 7.5 GM/DL (6.4-8.2)
[2017-04-13 09:44] LABS: POTASSIUM 4.1 MMOL/L (3.6-5.0)
[2017-04-13] MEDS ORDERED: ONDA4TAB8 SL (09:59)
[2017-04-13 10:06] VITALS: BP 116/67
== END 2017-04-13 10:11 | disposition home or self-care (01) ==
LOC: EDUNIT# 07:50 → ER 07:52
DX: R10.10 Upper abdominal pain, unspecified (principal); R11.2 Nausea with vomiting, unspecified; R19.7 Diarrhea, unspecified; F41.9 Anxiety disorder, unspecified; F90.9 Attention-deficit hyperactivity disorder, unspecified type; I10 Essential (primary) hypertension; Z87.442 Personal history of urinary calculi; Z97.5 Presence of (intrauterine) contraceptive device; Z87.891 Personal history of nicotine dependence
CPT/HCPCS: 36415; 80053; 83690; 84703; 85025

== ENCOUNTER 2018-07-28 06:04 | Emergency (ER) | payer MEDICAID ==
[~2018-07-28] VITALS: Ht 172.7 cm; Wt 108.9 kg
[~2018-07-28 06:04] MED LIST changes: +ACHD5005 PO; +CEPH-507 PO; -HYDR-3812 PO; +ONDA4TAB8 SL
--- NOTE | 2018-07-28 07:48 | ED GU-Female ---
General Stated Complaint: SWELLING IN PELVIC AREA Source: patient Exam Limitations: no limitations History of Present Illness Date Seen by Provider: Jul 28, 2018 Time Seen by Provider: 07:26 Initial Comments Patient here with report of swelling to the area of the right labia. Onset 2-3 days ago and states it's a little worse this morning. She was concerned because it's becoming more painful. She thought maybe it was an ingrown hair. Does have some vaginal discharge and states that it's chronic. Denies dysuria or diarrhea. Timing/Duration: getting worse, other (2-3 days) Severity/Quality: moderate, aching Location: vaginal Radiation: none Activities at Onset: none Sexual [place] History: less than 2 months ago Associated Symptoms: No fever/chills, No urinary frequency Allergies and Home Medications Allergies Coded Allergies: No Known Drug Allergies (Unverified , 05/02/10) Home Medications Cephalexin 500 Mg Capsule, 500 MG PO BID Prescribed by: ERNESTINA MIRAMONTES on 02/03/18 0126 Nitrofurantoin Macrocrystal 100 Mg Capsule, 100 MG PO BID Prescribed by: ERNESTINA MIRAMONTES on 03/18/17 0357 Ondansetron 4 Mg Tab.rapdis, 4 MG SL Q4H PRN for NAUSEA/VOMITING-1ST LINE Prescribed by: VALARIE LEDBETTER on 04/13/17 0959 Patient Home Medication List Home Medication List Reviewed: Yes Review of Systems Review of Systems Constitutional: see HPI; No chills, No fever Respiratory: no symptoms reported Cardiovascular: no symptoms reported Genitourinary: see HPI; denies dysuria; pain Musculoskeletal: no symptoms reported Skin: see HPI, lesions; No rash Past Gowryjp-Uercsg-Aadmja Hx Past Med/Social Hx: Reviewed Nursing Past Med/Soc Hx Patient Social History Alcohol Use: Occasionally Uses Alcohol Beverage of Choice: Beer Type Used: Electronic/Vapor Former Smoker, Quit: Dec 14, 2016 Recent Foreign Travel: No Contact w/Someone Who Travel: No Recent Hopitalizations: No (VAGINAL DELIVERIES X 2) Immunizations Up To Date Tetanus Booster (TDap): Unknown PED Vaccines UTD: Yes Date of Influenza Vaccine: Mar 13, 2014 Seasonal Allergies Seasonal Allergies: No Past Medical History Surgeries: Yes Gallbladder Respiratory: No Currently Using CPAP: No Currently Using BIPAP: No Cardiac: Yes Hypertension Neurological: No 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 oz. [age]yo; 30.41 BMI Method:Stated General Appearance: WD/WN, no apparent distress Cardiovascular: regular rate, rhythm, no murmur Respiratory: lungs clear, normal breath sounds Pelvic: discharge (saucedo/white discharge), other (tender to the area of the right labia majora in the lower posterior portion. There is a small indurated area although doesn't appear to be fluctuant at this time. Appears to emanate from the scan and not the Bartholin's gland.) Skin: warm/dry, other (lesion as described above) Progress/Results/Core Measures Suspected Sepsis SIRS Temperature: Pulse: Respiratory Rate: Blood Pressure / Mean: Results/Orders My Orders Orders - JANEEN DESAI MD Wet Prep (07/28/18 07:37) Neisseria Gonorrhea Swab (07/28/18 07:37) Chlamydia Trachomatis Swab (07/28/18 07:37) Vital Signs/I&O Capillary Refill : Progress Note : Progress Note Seen and evaluated. No indication for I and D at this time. We will initiate antibiotic. Wet prep ordered as well as GC/Chlamydia swabs. Discharged home with return precautions. Patient verbalize understanding instructions and agreement with plan. Departure Impression Primary Impression: Bacterial vaginosis Additional Impressions: Trichomonas infection Folliculitis Disposition: HOME, SELF-CARE Condition: Stable Departure-Patient Inst. Decision time for Depature: 07:55 Referrals: ANGELICA MENDES MD (PCP/Family) Primary Care Physician Patient Instructions: Bacterial Vaginosis (DC), Folliculitis (DC), Trichomoniasis (DC) Add. Discharge Instructions: Use antibiotic ointment over area of swelling to her 3 times daily. Take medications as directed. Follow-up with your DrTadeo in a few days for recheck. Return for worsening, fever, vomiting, weakness, breathing problems or other concerns as needed. Scripts Sulfamethoxazole/Trimethoprim (Sulfamethoxazole-Tmp Ds Tablet) 1 Each Tablet 1 EACH PO BID, #14 TAB 0 Refills Prov: JANEEN DESAI MD 07/28/18 Metronidazole (Metronidazole) 500 Mg Tablet 500 MG PO BID, #14 TAB 0 Refills Prov: JANEEN DESAI MD 07/28/18 JANEEN DESAI MD Jul 28, 2018 07:48
[2018-07-28] MEDS ORDERED: METR-145 PO (07:59)
[2018-07-28] MEDS ORDERED: SULF-222 PO (07:59)
[2018-07-28 08:10] VITALS: BP 136/93
== END 2018-07-28 08:10 | disposition home or self-care (01) ==
LOC: EDUNIT# 06:04 → ER 06:08
DX: N76.0 Acute vaginitis (principal); A59.9 Trichomoniasis, unspecified; L73.9 Follicular disorder, unspecified; I10 Essential (primary) hypertension; K21.9 Gastro-esophageal reflux disease without esophagitis; F90.9 Attention-deficit hyperactivity disorder, unspecified type; F41.9 Anxiety disorder, unspecified; F32.9 Major depressive disorder, single episode, unspecified; Z87.891 Personal history of nicotine dependence; Z87.442 Personal history of urinary calculi; Z87.440 Personal history of urinary (tract) infections
CPT/HCPCS: 36415; 87210; 87491; 87591; 99284

== ENCOUNTER 2019-02-21 19:47 | Emergency (ER) | payer MEDICAID ==
[~2019-02-21] VITALS: Ht 172 cm; Wt 109.0 kg
[~2019-02-21 19:47] MED LIST changes: +METR-145 PO; +SULF-222 PO
[2019-02-21 20:09] LABS: BASOPHILS % (AUTO) 0 % (0-10); EOSINOPHILS # (AUTO) 0.1 10^3/uL (0.0-0.3); EOSINOPHILS % (AUTO) 1 % (0-10); HEMATOCRIT 35 % (35-52); HEMOGLOBIN 11.7 G/DL (11.5-16.0); LYMPHOCYTES # (AUTO) 2.2 X 10^3 (1.0-4.0); LYMPHOCYTES % (AUTO) 31 % (12-44); MEAN CORPUSCULAR HEMOGLOBIN 30 PG (25-34); MEAN CORPUSCULAR HGB CONC 33 G/DL (32-36); MEAN CORPUSCULAR VOLUME 89 FL (80-99); MEAN PLATELET VOLUME 9.6 FL (7.4-10.4); MONOCYTES # (AUTO) 0.7 X 10^3 (0.0-1.0); MONOCYTES % (AUTO) 9 % (0-12); NEUTROPHILS # (AUTO) 4.3 X 10^3 (1.8-7.8); NEUTROPHILS % (AUTO) 59 % (42-75); PLATELET COUNT 316 10^3/uL (130-400); WHITE BLOOD COUNT 7.2 10^3/uL (4.3-11.0)
[2019-02-21] MEDS ORDERED: ASPIRIN 81 MG CHEW (CHILDREN'S ASA) PO ONE (20:15)
[2019-02-21] MEDS ORDERED: ONDANSETRON 4 MG/2 ML (SDV) Z0FRAN IVP ONE (20:15)
[2019-02-21] MEDS ORDERED: KETOROLAC 30 MG/ML VIAL IVP ONE (20:15)
[2019-02-21 20:22] LABS: PROTHROMBIN TIME PATIENT 13.5 SEC (12.2-14.7)
[2019-02-21 20:25] LABS: BUN/CREATININE RATIO 17; CARBON DIOXIDE 23 MMOL/L (21-32); CHLORIDE 107 MMOL/L (98-107); CREATININE SERUM 1.15 MG/DL (0.60-1.30); GFR ESTIMATED 53; SODIUM 139 MMOL/L (135-145)
[2019-02-21 20:26] LABS: ALANINE AMINOTRANSFERASE 9 U/L (0-55); ALBUMIN 3.9 GM/DL (3.2-4.5); ALKALINE PHOSPHATASE 77 U/L (40-136); AMYLASE 42 U/L (25-125); BILIRUBIN,TOTAL 0.5 MG/DL (0.1-1.0); CALCIUM 8.8 MG/DL (8.5-10.1); CREATINE KINASE 39 U/L (29-168); GLUCOSE 142 MG/DL (70-105); LIPASE 59 U/L (8-78); MAGNESIUM 1.6 MG/DL (1.6-2.4); TOTAL PROTEIN 7.2 GM/DL (6.4-8.2)
[2019-02-21 20:32] LABS: CREATINE KINASE MB 0.5 NG/ML (<6.6)
--- NOTE | 2019-02-21 20:43 | Diagnostic Imaging Report ---
INDICATION: Chest pain Comparison is made to the prior study from 08/08/2015. FINDINGS: The lungs demonstrate no focal infiltrate or consolidation. There is no effusion. There is no pneumothorax. Heart size and mediastinal contours are appropriate and pulmonary vascularity appears normal. There is no acute or suspicious osseous abnormality. IMPRESSION: 1. No radiographic evidence of an acute cardiopulmonary process. Dictated by: Dictated on workstation # [id number]
[2019-02-21] MEDS ORDERED: METH4TAB PO (21:07)
--- NOTE | 2019-02-21 21:08 | ED Chest Pain ---
General Chief Complaint: Chest Pain Stated Complaint: CHEST PAIN Nursing Triage Note: Patient advises she began experiencing chest pain last night around midnight that has not improved. She advises that she has a hx of chronic costochondritis but states the pain feels different and is unrelieved. She rates the pain as a 7/10 and states substernal region. Pain is reproducable with palpation. Nursing Sepsis Screen: No Definite Risk Source: patient History of Present Illness Date Seen by Provider: Feb 21, 2019 Time Seen by Provider: 20:00 Initial Comments PT ARRIVES VIA POV FROM HOME C/O CHEST PAIN SINCE MIDNIGHT LAST NIGHT STATES "I THOUGHT IT WAS MY NORMAL CHEST PROBLEMS" "I HAVE STRESS RELATED COSTO- CHONDRITIS AND I ALWAYS HAVE ASTHMA" "MY MOM THINKS I HAVE SLEEP APNEA" " I CALLED MY MOM AND SHE TOLD ME TO COME TO HERE" STATES "THE PAIN IS ON THE STERNUM AND A LITTLE ON THE DIAPHRAGM AND EDGES OF THE RIBS AND NOW IT'S CENTERED ON THE STERNUM" STATES PAIN IS WORSE WITH CERTAIN MOVEMENTS/ POSITIONS STATES IT HURTS TO BREATHE TOOL NAPROXEN 500 MG AND PROPRANOLOL 10 MG LAST PM, HAS NOT TAKEN ANYTHING FOR PAIN TODAY NO COUGH/CONGESTION OR FEVER NO RECENT ILLNESS NO WHEEZING. PCP: DR. MENDES / [facility] Allergies and Home Medications Allergies Coded Allergies: No Known Drug Allergies (Unverified , 05/02/10) Home Medications Cephalexin 500 Mg Capsule, 500 MG PO BID Prescribed by: ERNESTINA MIRAMONTES on 02/03/18 0126 Methylprednisolone 4 Mg Tab.ds.pk, 4 MG PO UD Prescribed by: CORINE ALEXANDER on 02/21/192106 Metronidazole 500 Mg Tablet, 500 MG PO BID Prescribed by: JANEEN DESAI on 07/28/18 0755 Nitrofurantoin Macrocrystal 100 Mg Capsule, 100 MG PO BID Prescribed by: ERNESTINA MIRAMONTES on 03/18/17 0357 Ondansetron 4 Mg Tab.rapdis, 4 MG SL Q4H PRN for NAUSEA/VOMITING-1ST LINE Prescribed by: VALARIE LEDBETTER on 04/13/17 0959 Sulfamethoxazole/Trimethoprim 1 Each Tablet, 1 EACH PO BID Prescribed by: JANEEN DESAI on 07/28/18 1498 Patient Home Medication List Home Medication List Reviewed: Yes Review of Systems Review of Systems Constitutional: no symptoms reported; No chills, No diaphoresis, No fever EENTM: No Symptoms Reported Respiratory: See HPI, Cough, Other (HURTS TO BREATHE) Cardiovascular: See HPI, Chest Pain; Denies Edema, Denies Lightheadedness, Denies Palpitations, Denies Syncope Gastrointestinal: No Symptoms Reported; Denies Abdominal Pain, Denies Nausea, Denies Vomiting Genitourinary: No Symptoms Reported Musculoskeletal: see HPI Skin: no symptoms reported Psychiatric/Neurological: No Symptoms Reported Endocrine: No Symptoms Reported Hematologic/Lymphatic: No Symptoms Reported Past Kxlizdv-Xgorrf-Qyoafl Hx Past Med/Social Hx: Reviewed and Corrections made Patient Social History Alcohol Use: Occasionally Uses (ONCE A MONTH) Number of Drinks Today: AA Alcohol Beverage of Choice: Beer Recreational Drug Use: Yes (STATES "I USED TO BE ADDICTED TO [place]" ) Drug of Choice: THC--HEAVY USE BY HISTORY, CLAIMS NONE RECENTLY Smoking Status: Current Everyday Smoker (2 PPD, QUIT IN 2008, NOW VAPES) Type Used: Cigarettes (2 PPD, QUIT 2008,. 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, Tubal Ligation Genitourinary: Yes Kidney Stones, UTI-Chronic Gastrointestinal: Yes Gastroesophageal Reflux Musculoskeletal: Yes (KYPHOSIS) Scoliosis, Chronic Back Pain Endocrine: No (OBESITY) HEENT: No Cancer: No Psychosocial: Yes (PSYCHOTIC EPISODES) ADD/ADHD, Anxiety, Depression Integumentary: No Blood Disorders: No Adverse Reaction/Blood Tranf: No Physical Exam Vital Signs Vital Signs - First Documented 02/21/19 02/21/19 20:00 20:03 Temp 37.0 Pulse 105 Resp 20 B/P (MAP) 150/100 (117) Pulse Ox 95 O2 Delivery Room Air Capillary Refill : Less Than 3 Seconds Height, Weight, BMI Height: 5'8.00" Weight: 240lbs. oz. 108.302627nx; 36.00 BMI Method:Stated General Appearance: No Apparent Distress, WD/WN, Obese, Other (VERY TALKATIVE, DOESN NOT APPEAR TO BE IN ANY DISCOMFORT OR DISTRESS) HEENT: PERRL/EOMI Neck: Full Range of Motion, Normal Inspection, Non Tender, Supple; No Carotid Bruit, No JVD Respiratory: Normal Breath Sounds, No Accessory Muscle Use, No Respiratory Distress, Other (MID CHEST TENDERNESS, DRAMATICALLY REPRODUCES PAIN ) Cardiovascular: Regular Rate, Rhythm, No Edema, No JVD, No Murmur Gastrointestinal: Normal Bowel Sounds, Non Tender, Soft Extremity: Normal Inspection, No Pedal Edema Neurologic/Psychiatric: Alert, Oriented x3, No Motor/Sensory Deficits, Normal Mood/Affect, comptometrist II-XII Norm as Tested Skin: Normal Color, Warm/Dry Progress/Results/Core Measures Results/Orders Lab Results Laboratory Tests Test 02/21/19 19:57 Range/Units White Blood Count 7.2 4.3-11.0 10^3/uL Red Blood Count 3.96 L 4.35-5.85 10^6/uL Hemoglobin 11.7 11.5-16.0 G/DL Hematocrit 35 35-52 % Mean Corpuscular Volume 89 80-99 FL Mean Corpuscular Hemoglobin 30 25-34 PG Mean Corpuscular Hemoglobin Concent 33 32-36 G/DL Red Cell Distribution Width 14.0 10.0-14.5 % Platelet Count 316 130-400 10^3/uL Mean Platelet Volume 9.6 7.4-10.4 FL Neutrophils (%) (Auto) 59 42-75 % Lymphocytes (%) (Auto) 31 12-44 % Monocytes (%) (Auto) 9 0-12 % Eosinophils (%) (Auto) 1 0-10 % Basophils (%) (Auto) 0 0-10 % Neutrophils # (Auto) 4.3 1.8-7.8 X 10^3 Lymphocytes # (Auto) 2.2 1.0-4.0 X 10^3 Monocytes # (Auto) 0.7 0.0-1.0 X 10^3 Eosinophils # (Auto) 0.1 0.0-0.3 10^3/uL Basophils # (Auto) 0.0 0.0-0.1 10^3/uL Prothrombin Time 13.5 12.2-14.7 SEC INR Comment 1.0 0.8-1.4 Activated Partial Thromboplast Time 24 24-35 SEC Sodium Level 139 135-145 MMOL/L Potassium Level 4.0 3.6-5.0 MMOL/L Chloride Level 107 98-107 MMOL/L Carbon Dioxide Level 23 21-32 MMOL/L Anion Gap 9 5-14 MMOL/L Blood Urea Nitrogen 20 H 7-18 MG/DL Creatinine 1.15 0.60-1.30 MG/DL Estimat Glomerular Filtration Rate 53 BUN/Creatinine Ratio 17 Glucose Level 142 H 70-105 MG/DL Calcium Level 8.8 8.5-10.1 MG/DL Corrected Calcium 8.9 8.5-10.1 MG/DL Magnesium Level 1.6 1.6-2.4 MG/DL Total Bilirubin 0.5 0.1-1.0 MG/DL Aspartate Amino Transf (AST/SGOT) 12 5-34 U/L Alanine Aminotransferase (ALT/SGPT) 9 0-55 U/L Alkaline Phosphatase 77 40-136 U/L Total Creatine Kinase 39 29-168 U/L Creatine Kinase MB 0.5 <6.6 NG/ML Myoglobin 23.5 10.0-92.0 NG/ML Troponin I < 0.028 <0.028 NG/ML B-Type Natriuretic Peptide < 10.0 <100.0 PG/ML Total Protein 7.2 6.4-8.2 GM/DL Albumin 3.9 3.2-4.5 GM/DL Amylase Level 42 25-125 U/L Lipase 59 8-78 U/L Serum Test, Qualitative NEGATIVE NEGATIVE My Orders Orders - CORINE ALEXANDER DO Cbc With Automated Diff (02/21/19 20:02) Magnesium (02/21/19 20:02) Chest 1 View, Ap/Pa Only (02/21/19 20:02) Ekg Tracing (02/21/19 20:02) Cardiac Profile 1 (02/21/19 20:02) Comprehensive Metabolic Panel (02/21/19 20:02) Myoglobin Serum (02/21/19 20:02) Protime With Inr (02/21/19 20:02) Partial Thromboplastin Time (02/21/19 20:02) O2 (02/21/19 20:02) Monitor-Rhythm Ecg Trace Only (02/21/19 20:02) Ed Iv/Invasive Line Start (02/21/19 20:02) Creatine Kinase (02/21/19 20:02) Creatine Kinase Mb (02/21/19 20:02) Lipase (02/21/19 20:02) Amylase (02/21/19 20:02) BNP (02/21/19 20:02) Aspirin Chewable Tablet (Baby Aspirin Ch (02/21/19 20:15) Hcg,Qualitative Serum (02/21/19 20:02) Ketorolac Injection (Toradol Injection) (02/21/19 20:15) Ondansetron Injection (Zofran Injectio (02/21/19 20:15) Medications Given in ED Current Medications Medications Dose Ordered Sig/Radha Route Start Time Stop Time Status Last Admin Dose Admin Aspirin 324 mg ONCE ONCE PO 02/21/19 20:15 02/21/19 20:16 DC 02/21/19 20:40 324 MG Ketorolac Tromethamine 30 mg ONCE ONCE IVP 02/21/19 20:15 02/21/19 20:16 DC 02/21/19 20:40 30 MG Ondansetron HCl 4 mg ONCE ONCE IVP 02/21/19 20:15 02/21/19 20:16 DC 02/21/19 20:40 4 MG Vital Signs/I&O 02/21/19 02/21/19 02/21/19 02/21/19 20:00 20:03 20:03 21:23 Temp 37.0 Pulse 105 96 Resp 20 21 B/P (MAP) 150/100 (117) 136/83 (117) Pulse Ox 95 95 94 O2 Delivery Room Air Room Air Room Air Room Air Blood Pressure Mean: 117 Progress Progress Note : Progress Note UNEVENTFUL ER STAY PAIN IMPROVED WITH TORADOL Initial ECG Impression Date: Feb 21, 2019 Initial ECG Impression Time: 19:53 Initial ECG Rate: 99 Initial ECG Rhythm: Normal Sinus Diagnostic Imaging Comments CXR--NO ACUTE PROCESS, PER RADIOLOGIST REPORT Reviewed: Reviewed by Me Departure Impression Primary Impression: Chest wall pain Disposition: HOME, SELF-CARE Condition: Improved Departure-Patient Inst. Referrals: ANGELICA MENDES MD (PCP/Family) Primary Care Physician Patient Instructions: Costochondritis (DC), Chest Pain That Is Not Caused by the Heart (DC) Add. Discharge Instructions: ALTERNATE ICE AND HEAT TO SORE AREA AT 20 MINUTE INTERVALS FOLLOW UP WITH DR. MENDES IN 3-4 DAYS, RETURN TO ER IF SYMPTOMS WORSEN All discharge instructions reviewed with patient and/or family. Voiced understanding. Scripts Methylprednisolone (Medrol) 4 Mg Tab.ds.pk 4 MG PO UD, #1 PKG Prov: CORINE ALEXANDER DO 02/21/19 CORINE ALEXANDER DO Feb 21, 2019 21:08
[2019-02-21 21:23] VITALS: BP 136/83
== END 2019-02-21 21:23 | disposition home or self-care (01) ==
LOC: EDUNIT# 19:47 → ER 19:48
DX: R07.89 Other chest pain (principal); J45.909 Unspecified asthma, uncomplicated; I10 Essential (primary) hypertension; G43.909 Migraine, unspecified, not intractable, without status migrainosus; K21.9 Gastro-esophageal reflux disease without esophagitis; E66.9 Obesity, unspecified; F90.9 Attention-deficit hyperactivity disorder, unspecified type; F41.9 Anxiety disorder, unspecified; F32.9 Major depressive disorder, single episode, unspecified; F17.290 Nicotine dependence, other tobacco product, uncomplicated; Z98.51 Tubal ligation status; Z87.442 Personal history of urinary calculi; Z87.440 Personal history of urinary (tract) infections
CPT/HCPCS: 36415; 71045; 80053; 82150; 82550; 82553; 83690; 83735; 83874; 83880; 84484; 84703; 85025; 85610; 85730; 93005; 93041; 96374; 96375

== ENCOUNTER 2020-06-24 13:01 | Inpatient (IN) | payer MEDICAID, OTHER ==
[~2020-06-24] VITALS: Ht 172 cm; Wt 121.3 kg
[~2020-06-24 13:01] MED LIST changes: -ARIP5TAB20; +ARIP5TAB57; +METH4TAB PO
[2020-06-24 13:19] LABS: CLARITY,URINE CLEAR; COLOR,URINE ORANGE; GLUCOSE, URINE (UA) TRACE (NEGATIVE); KETONES,URINE 1+ (NEGATIVE); LEUKOCYTE ESTERASE ,URINE 2+ (NEGATIVE); NITRITE,URINE POSITIVE (NEGATIVE); PROTEIN,URINE 3+ (NEGATIVE)
--- NOTE | 2020-06-24 13:30 | ED General ---
General Stated Complaint: MUSCLE PAIN,FEVER,CHILL Source of Information: Patient Exam Limitations: No Limitations History of Present Illness Date Seen by Provider: Jun 24, 2020 Time Seen by Provider: 13:28 Initial Comments To ER by private vehicle from [facility] where she presented with urinary tract infection symptoms. This began Tuesday night with urinary frequency and burning. It intensified last night with worsening pain, as well as bilateral flank pain. No fevers or chills. Count includes the [facility] had concerns for pyelonephritis so they referred her here. Upon arrival her heart rate is 119 and blood pressure is 85 systolic. Timing/Duration: 2-3 Days Severity: Moderate Associated Systoms: Denies Symptoms Allergies and Home Medications Allergies Coded Allergies: No Known Drug Allergies (Unverified , 05/02/10) Home Medications Cephalexin 500 Mg Capsule, 500 MG PO BID Prescribed by: ERNESTINA MIRAMONTES on 02/03/18 0126 Methylprednisolone 4 Mg Tab.ds.pk, 4 MG PO UD Prescribed by: CORINE ALEXANDER on 02/21/192106 Metronidazole 500 Mg Tablet, 500 MG PO BID Prescribed by: JANEEN DESAI on 07/28/18 0759 Nitrofurantoin Macrocrystal 100 Mg Capsule, 100 MG PO BID Prescribed by: ERNESTINA MIRAMONTES on 03/18/17 0357 Ondansetron 4 Mg Tab.rapdis, 4 MG SL Q4H PRN for NAUSEA/VOMITING-1ST LINE Prescribed by: VALARIE LEDBETTER on 04/13/17 0959 Sulfamethoxazole/Trimethoprim 1 Each Tablet, 1 EACH PO BID Prescribed by: JANEEN DESAI on 07/28/18 0759 Patient Home Medication List Home Medication List Reviewed: Yes Review of Systems Review of Systems Constitutional: see HPI, chills, malaise, weakness EENTM: see HPI Respiratory: no symptoms reported Cardiovascular: no symptoms reported Genitourinary: see HPI, dysuria, frequency Musculoskeletal: no symptoms reported Skin: no symptoms reported Psychiatric/Neurological: No Symptoms Reported Hematologic/Lymphatic: No Symptoms Reported Immunological/Allergic: no symptoms reported Past Cvnncpi-Rwqxst-Ligwnf Hx Patient Social History Alcohol Beverage of Choice: Beer Drug of Choice: THC--HEAVY USE BY HISTORY, CLAIMS NONE RECENTLY Type Used: Cigarettes, Electronic/Vapor 2nd Hand Smoke Exposure: No Recent Hopitalizations: No (VAGINAL DELIVERIES X 2) Immunizations Up To Date Tetanus Booster (TDap): Unknown PED Vaccines UTD: Yes Date of Influenza Vaccine: Mar 13, 2014 Seasonal Allergies Seasonal Allergies: No Past Medical History Surgeries: Yes Gallbladder, Tubal Ligation Respiratory: Yes Asthma Currently Using CPAP: No Currently Using BIPAP: No Cardiac: Yes Hypertension Neurological: Yes Headaches /Migraines Reproductive Disorders: 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 oz. 108.496183dr; 36.00 BMI Method:Stated General Appearance: No Apparent Distress, WD/WN Eyes: Bilateral Eye Normal Inspection, Bilateral Eye PERRL, Bilateral Eye EOMI Neck: Full Range of Motion, Normal Inspection Respiratory: No Accessory Muscle Use, No Respiratory Distress Cardiovascular: Regular Rate, Rhythm, Normal Peripheral Pulses Gastrointestinal: Non Tender, Soft Extremity: Normal Capillary Refill, Normal Inspection Neurologic/Psychiatric: Alert, Oriented x3 Skin: Normal Color, Warm/Dry Focused Exam Lactate Level 06/24/20 13:27: Lactic Acid Level 2.84*H Lactic Acid Level Laboratory Tests Test 06/24/20 13:27 Lactic Acid Level 2.84 MMOL/L (0.50-2.00) *H Progress/Results/Core Measures Suspected Sepsis SIRS Temperature: Pulse: Respiratory Rate: Laboratory Tests 06/24/20 13:27: White Blood Count 15.2H Blood Pressure / Mean: 06/24/20 13:27: Lactic Acid Level 2.84*H Laboratory Tests 06/24/20 13:27: Creatinine 1.48H, Platelet Count 294, Total Bilirubin 0.8 Results/Orders Lab Results Laboratory Tests Test 06/24/20 13:12 06/24/20 13:27 Range/Units Urine Color ORANGE Urine Clarity CLEAR Urine pH 5.0 5-9 Urine Specific [place] 1.025 H 1.016-1.022 Urine Protein 3+ H NEGATIVE Urine Glucose (UA) TRACE H NEGATIVE Urine Ketones 1+ H NEGATIVE Urine Nitrite POSITIVE H NEGATIVE Urine Bilirubin 2+ H NEGATIVE Urine Urobilinogen >=8.0 < = 1.0 MG/DL Urine Leukocyte Esterase 2+ H NEGATIVE Urine RBC (Auto) 3+ H NEGATIVE Urine RBC 50-100 H /HPF Urine WBC 25-50 H /HPF Urine Squamous Epithelial Cells 5-10 /HPF Urine Crystals NONE /LPF Urine Bacteria MODERATE H /HPF Urine Casts NONE /LPF Urine Mucus NEGATIVE /LPF Urine Culture Indicated YES White Blood Count 15.2 H 4.3-11.0 10^3/uL Red Blood Count 3.77 L 3.80-5.11 10^6/uL Hemoglobin 11.3 L 11.5-16.0 g/dL Hematocrit 34 L 35-52 % Mean Corpuscular Volume 90 80-99 fL Mean Corpuscular Hemoglobin 30 25-34 pg Mean Corpuscular Hemoglobin Concent 33 32-36 g/dL Red Cell Distribution Width 13.8 10.0-14.5 % Platelet Count 294 130-400 10^3/uL Mean Platelet Volume 10.1 9.0-12.2 fL Immature Granulocyte % (Auto) 1 % Neutrophils (%) (Auto) 92 H 42-75 % Lymphocytes (%) (Auto) 2 L 12-44 % Monocytes (%) (Auto) 4 0-12 % Eosinophils (%) (Auto) 0 0-10 % Basophils (%) (Auto) 0 0-10 % Neutrophils # (Auto) 14.0 H 1.8-7.8 10^3/uL Lymphocytes # (Auto) 0.3 L 1.0-4.0 10^3/uL Monocytes # (Auto) 0.6 0.0-1.0 10^3/uL Eosinophils # (Auto) 0.0 0.0-0.3 10^3/uL Basophils # (Auto) 0.0 0.0-0.1 10^3/uL Immature Granulocyte # (Auto) 0.2 H 0.0-0.1 10^3/uL Neutrophils % (Manual) 70 % Lymphocytes % (Manual) 5 % Monocytes % (Manual) 0 % Eosinophils % (Manual) 0 % Basophils % (Manual) 0 % Band Neutrophils 25 % Blood Morphology Comment NORMAL Sodium Level 138 135-145 MMOL/L Potassium Level 3.6 3.6-5.0 MMOL/L Chloride Level 109 H 98-107 MMOL/L Carbon Dioxide Level 18 L 21-32 MMOL/L Anion Gap 11 5-14 MMOL/L Blood Urea Nitrogen 22 H 7-18 MG/DL Creatinine 1.48 H 0.60-1.30 MG/DL Estimat Glomerular Filtration Rate 39 BUN/Creatinine Ratio 15 Glucose Level 163 H 70-105 MG/DL Lactic Acid Level 2.84 *H 0.50-2.00 MMOL/L Calcium Level 8.7 8.5-10.1 MG/DL Corrected Calcium 8.9 8.5-10.1 MG/DL Total Bilirubin 0.8 0.1-1.0 MG/DL Aspartate Amino Transf (AST/SGOT) 18 5-34 U/L Alanine Aminotransferase (ALT/SGPT) 16 0-55 U/L Alkaline Phosphatase 67 40-136 U/L Total Protein 7.4 6.4-8.2 GM/DL Albumin 3.8 3.2-4.5 GM/DL Serum Test, Qualitative NEGATIVE NEGATIVE My Orders Orders - TERESA BETANCOURT APRN Cbc With Automated Diff (06/24/20 13:11) Comprehensive Metabolic Panel (06/24/20 13:11) Ua Culture If Indicated (06/24/20 13:11) Ed Iv/Invasive Line Start (06/24/20 13:11) Hcg,Qualitative Serum (06/24/20 13:11) Blood Culture (06/24/20 13:25) Lactic Acid Analyzer (06/24/20 13:25) Ns Iv 1000 Ml (Sodium Chloride 0.9%) (06/24/20 13:30) Urine Culture (06/24/20 13:12) Manual Differential (06/24/20 13:27) Vital Signs/I&O 06/24/20 13:25 Temp 36.1 Pulse 120 Resp 18 B/P (MAP) 96/60 (72) Pulse Ox 97 Capillary Refill : Departure Communication (Admissions) Time/Spoke to Admitting Phy: 14:26 Fluid resuscitation based on ideal body weight. Impression Primary Impression: Pyelonephritis Additional Impression: Sepsis Disposition: 09 ADMITTED INPATIENT Condition: Stable Admissions Decision to Admit Reason: Admit from ER (General) Decision to Admit/Date: Jun 24, 2020 Time/Decision to Admit Time: 14:26 Departure-Patient Inst. Referrals: ANGELICA MENDES MD (PCP/Family) Primary Care Physician TERESA BETANCOURT APRN Jun 24, 2020 13:30
[2020-06-24 13:31] LABS: BACTERIA,URINE MODERATE /HPF; RBC,URINE 50-100 /HPF; WBC,URINE 25-50 /HPF
[2020-06-24 13:33] LABS: BILIRUBIN,URINE 2+ (NEGATIVE)
[2020-06-24] MEDS: NS IV 1000 ML 1,000 ML IV SCH ×2 (13:34→16:54)
[2020-06-24 13:39] LABS: BASOPHILS % (AUTO) 0 % (0-10); EOSINOPHILS % (AUTO) 0 % (0-10); HEMATOCRIT 34 % (35-52); HEMOGLOBIN 11.3 g/dL (11.5-16.0); LYMPHOCYTES # (AUTO) 0.3 10^3/uL (1.0-4.0); LYMPHOCYTES % (AUTO) 2 % (12-44); MEAN CORPUSCULAR HEMOGLOBIN 30 pg (25-34); MEAN CORPUSCULAR HGB CONC 33 g/dL (32-36); MEAN CORPUSCULAR VOLUME 90 fL (80-99); MEAN PLATELET VOLUME 10.1 fL (9.0-12.2); MONOCYTES # (AUTO) 0.6 10^3/uL (0.0-1.0); MONOCYTES % (AUTO) 4 % (0-12); NEUTROPHILS % (AUTO) 92 % (42-75); PLATELET COUNT 294 10^3/uL (130-400); WHITE BLOOD COUNT 15.2 10^3/uL (4.3-11.0)
[2020-06-24 13:57] LABS: ALBUMIN 3.8 GM/DL (3.2-4.5); BILIRUBIN,TOTAL 0.8 MG/DL (0.1-1.0); CALCIUM 8.7 MG/DL (8.5-10.1); CREATININE SERUM 1.48 MG/DL (0.60-1.30); POTASSIUM 3.6 MMOL/L (3.6-5.0); TOTAL PROTEIN 7.4 GM/DL (6.4-8.2)
[2020-06-24 14:07] LABS: BAND NEUTROPHILS 25 %; BASOPHILS % (MANUAL) 0 %; EOSINOPHILS % (MANUAL) 0 %; LYMPHOCYTES % (MANUAL) 5 %; MONOCYTES % (MANUAL) 0 %; NEUTROPHILS % (MANUAL) 70 %
[2020-06-24 14:08] LABS: RBC MORPH NORMAL
[2020-06-24] MEDS ORDERED: cefTRIAXone FOR IV USE 2,000 MG in WATER (STERILE) FOR INJECTION 20 ML IV ONE (14:30)
[2020-06-24] MEDS ORDERED: ONDANSETRON 4 MG/2 ML (SDV) Z0FRAN IVP ONE (15:00)
--- NOTE | 2020-06-24 15:12 | Diagnostic Imaging Report ---
PROCEDURE: CT urinary tract, rule out kidney stone. TECHNIQUE: Multiple contiguous axial images were obtained through the abdomen and pelvis without the use of intravenous contrast. Auto Exposure Controls were utilized during the CT exam to meet ALARA standards for radiation dose reduction. INDICATION: Fever and urinary symptoms x 2 days. Pain in the flank area. CORRELATION STUDY: 02/03/2018. FINDINGS: LOWER THORAX: Clear. LIVER: Unremarkable. GALLBLADDER: Cholecystectomy. SPLEEN: Unremarkable. PANCREAS: Unremarkable. ADRENAL GLANDS: Unremarkable. KIDNEYS: 7 mm stone in the distal right ureter. The UVJ results in moderate right-sided obstruction. There is engorgement of the right kidney with mild perinephric stranding. Multiple (at least 4) nonobstructing left renal stones. No ureteric calcification on the left. ABDOMINAL AORTA: Nonaneurysmal. There are a few small shotty subcentimeter central retroperitoneal lymph nodes. GASTROINTESTINAL TRACT: No obstruction. No definitive inflammatory change. URINARY BLADDER: Relatively decompressed. REPRODUCTIVE: Unremarkable. OSSEOUS STRUCTURES: Moderate asymmetric degenerative disc disease at the L4-L5 and L5-S1 levels with osteophyte formation. OTHER: None. IMPRESSION: 7 mm stone in the distal right ureter at the UVJ results in moderate right-sided obstructive uropathy. Dictated by: Dictated on workstation # [id number]
--- NOTE | 2020-06-24 15:34 | NUR ---
REPORT TO RAPHAEL DARLING.
[2020-06-24 16:00] VITALS: BP 117/74
[2020-06-24 16:04] VITALS: BP 117/64
--- NOTE | 2020-06-24 16:04 | Diagnostic Imaging Report ---
INDICATION: 2 day history of fevers and urinary tract symptoms. Pain in flank area.. TECHNIQUE: 2 supine views of the abdomen 3:40 PM CORRELATION STUDY: CT abdomen and pelvis 06/24/2020 FINDINGS: A 7 mm calcification of the right hemipelvis corresponds to the known distal right ureteral stone. Previously demonstrated left renal stones are less well visualized, perhaps obscured by overlying bowel gas and stool. Cholecystectomy clips in right upper quadrant. Bowel gas pattern demonstrates nonobstructive appearance. IMPRESSION: 1. A 7 mm calcification of the right hemipelvis consistent with the known distal right ureteral stone. Dictated by: Dictated on workstation # [id number]
[2020-06-24] MEDS ORDERED: fentaNYL INJECTION 100 MCG/2 ML AMP IVP PRN (16:30)
[2020-06-24] MEDS: ACETAMINOPHEN 325 MG TABLET PO PRN (16:54)
[2020-06-24] MEDS ORDERED: ENOXAPARIN 40 MG/0.4 ML (LOVENOX) SYR SC SCH (17:00)
[2020-06-24] MEDS ORDERED: EPINEPHrine 1 MG INJECTION 4 MG in NS (IVPB) 248 ML IV SCH (17:30)
[2020-06-24] MEDS ORDERED: NOREPINEPHRINE 4 MG/250 ML 250 ML IV SCH (17:30)
--- NOTE | 2020-06-24 17:50 | CONSULTATION REPORT ---
DATE OF SERVICE: 06/24/2020 ATTENDING PHYSICIAN: Dr. Tineo. SUMMARY: After reviewing the patient's records, x-rays, interviewing her and examining her, this is a 40-year-old white lady with history of urolithiasis admitted to the emergency room with urosepsis, right pyelonephritis and was found to have about a 7 mm stone in the very distal and -- UVJ on the right side with moderate hydro, seen also on the KUB. The patient received 2 gram of Rocephin IV in the emergency room, started on IV fluid and she is feeling kind of better and looking better. She previously has the stone and pass them spontaneously. She has a problem with chronic pain and muscle pain, migraine, hypertension and gastroesophageal reflux disease. I reviewed the list of her medicines at home, she is on no blood thinners or aspirin. PAST SURGICAL HISTORY: Had tubal ligations and a cholecystectomy. PHYSICAL EXAMINATION: VITAL SIGNS: Per chart. Temperature when I saw her was 101. Blood pressure stable, tachycardic. GENERAL: Well-nourished, well-developed, in no acute distress. Her pain is . SKIN: Warm and dry. NECK: Supple, no bruits. CHEST: Clear, nontender. HEART: Regular rate and rhythm, no murmur. ABDOMEN: Soft. There is a 1+ right CVA tenderness. EXTREMITIES: Lower extremity, no edema or cyanosis. NEUROLOGIC: Grossly intact. Oriented x3. IMPRESSION: 1. Right distal ureteral stone with hydronephrosis and urosepsis, pyelonephritis. 2. Medical illnesses per history. 3. History of urolithiasis. PLAN: Continue IV antibiotic, IV fluids, strain all urine. We will let her have supper and n.p.o. after midnight. We will take her to surgery tomorrow unless she pass the stone, which she has a good chance to do and perform a right ureteroscopy with stone lithotripsy, possible basket stent or lithotomy. Procedure was fully explained to the patient and all her questions answered. Job ID: [id number] DocumentID: [id number] Dictated Date: 06/24/2020 17:10:43 Equipment Cleaner Date: 06/24/2020 17:49:32 Dictated By: SANDOVAL THOMAS MD
[2020-06-24 19:39] VITALS: BP 105/70
--- NOTE | 2020-06-24 19:46 | History & Physical-Hospitalist ---
History of Present Illness HPI/Chief Complaint CC: Sepsis with pyelonephritis with kidney stone HPI: This is a 40yoWF clinic patient of [facility] who has a h/o UTI's and kidney stones who had symptoms of a UTI 2 weeks ago and took AZO but presented today to the ER after sent from [facility] clinic due to tachycardia and fever of 102. Patient was given IVF and IV abx and Dr Contreras consulted for stone on CT scan. Patient feels better and no nausea is reported. Source: patient, RN/MD Exam Limitations: no limitations Date Seen 06/24/20 Time Seen by a Provider: 18:00 Attending Physician Yuliya Tineo Katrina M MD Referring Physician Date of Admission Jun 24, 2020 at 14:26 Home Medications & Allergies Home Medications Reviewed patient Home Medication Reconciliation performed by pharmacy medication reconciliations field service poultry technician and/or nursing. Patients Allergies have been reviewed. Allergies Allergies Coded Allergies No Known Drug Allergies (Jlmnoplfgx49/20/10) Past Bqubgqi-Jkewqw-Lalmdt Hx Past Med/Social Hx: Reviewed Nursing Past Med/Soc Hx, Reviewed and Corrections made Patient Social History Marrital Status: single Employed/Student: unemployed Alcohol Use: Denies Use Alcohol Beverage of Choice: Beer Recreational Drug Use: No Drug of Choice: THC--HEAVY USE BY HISTORY, CLAIMS NONE RECENTLY Smoking Status: Former Smoker Former Smoker, Quit: Dec 14, 2016 Type Used: Cigarettes, Electronic/Vapor 2nd Hand Smoke Exposure: No Recent Foreign Travel: No Contact w/other who traveled: No Recent Hopitalizations: No (VAGINAL DELIVERIES X 2) Recent Infectious Disease Expo: No Immunizations Up To Date Tetanus Booster (TDap): Unknown Pediatric: Yes Date of Influenza Vaccine: Mar 13, 2014 Seasonal Allergies Seasonal Allergies: No Past Medical History Surgeries: Gallbladder, Tubal Ligation Currently Using CPAP: No Currently Using BIPAP: No Cardiac: Hypertension Neurological: Headaches /Migraines : No Reproductive: No IUD, Tubal Ligation Genitourinary: Bladder Infection, Kidney Stones, UTI-Chronic Gastrointestinal: Gastroesophageal Reflux Musculoskeletal: Scoliosis, Chronic Back Pain Psychosocial: ADD/ADHD, Anxiety, Depression History of Blood Disorders: No Adverse Reaction to Blood Wheeler: No Review of Systems Constitutional: fever, malaise, weakness Genitourinary: dysuria, frequency, hematuria, hesitancy Physical Exam Physical Exam Vital Signs Vital Signs - First Documented 06/24/20 06/24/20 13:25 16:00 Temp 36.1 Pulse 120 Resp 18 B/P (MAP) 96/60 (72) Pulse Ox 97 O2 Delivery Room Air Capillary Refill : Less Than 3 Seconds Height, Weight, BMI Height: 5'8.00" Weight: 240lbs. oz. 108.480704ar; 41.00 BMI Method:Stated General Appearance: Anxious, Mild Distress, Other Eyes: Right Eye Normal Inspection, Right Eye PERRL HEENT: PERRL/EOMI, TMs Normal, Normal ENT Inspection, Pharynx Normal, Moist Mucous Membranes Neck: Full Range of Motion, Normal Inspection, Non Tender Respiratory: Chest Non Tender, Lungs Clear, Normal Breath Sounds, No Accessory Muscle Use, No Respiratory Distress Cardiovascular: Regular Rate, Rhythm, No Edema, No Gallop, No JVD, No Murmur, Normal Peripheral Pulses Gastrointestinal: Normal Bowel Sounds, No Organomegaly, No Pulsatile Mass, Non Tender, Soft Back: Normal Inspection, No CVA Tenderness, No Vertebral Tenderness Extremity: Normal Capillary Refill, Normal Inspection, Normal Range of Motion, Non Tender, No Calf Tenderness, No Pedal Edema Neurologic/Psychiatric: Alert, Oriented x3, No Motor/Sensory Deficits, Normal Mood/Affect Skin: Normal Color, Warm/Dry Lymphatic: No Adenopathy Results Results/Procedures Labs Laboratory Tests 06/24/20 13:27 06/25/20 04:05 Patient resulted labs reviewed. Assessment/Plan Admission Diagnosis Assessment: Sepsis Pyelonephritis Kidney stone Plan: IVF IV abx Dr Contreras appreciated Admission Status: Inpatient Order (span 2 midnights) Reason for Inpatient Admission: sepsis with pyelo Diagnosis/Problems Diagnosis/Problems (1) Sepsis Status: Acute (2) Kidney stone (3) Pyelonephritis Status: Acute YULIYA TINEO DO Jun 24, 2020 19:46
[2020-06-24] MEDS: KETOROLAC 30 MG/ML VIAL IVP PRN (20:00)
[2020-06-24] MEDS ORDERED: ALPRAZolam 0.25 MG (XANAX) TAB PO PRN (20:30)
[2020-06-24] MEDS ORDERED: DOCUSATE SODIUM 100 MG (COLACE) CAP PO PRN (20:30)
[2020-06-24] MEDS ORDERED: CALCIUM CARBONATE 500 MG (TUMS) TAB.CHEW PO PRN (20:30)
[2020-06-24] MEDS ORDERED: diphenhydrAMINE 25 MG TAB (BENADRYL) PO PRN (20:30)
[2020-06-24] MEDS ORDERED: LOPERAMIDE 2 MG (IMODIUM) TABLET PO PRN (20:30)
[2020-06-24] MEDS ORDERED: MELATONIN 3 MG TABLET PO PRN (20:30)
[2020-06-24] MEDS ORDERED: HYDROcodone/APAP 5 MG/325 MG (LORTAB) TAB PO PRN (20:30)
[2020-06-24] MEDS: SENNA W/DOCUSATE (SENOKOT S) TABLET PO SCH (20:37)
[2020-06-24] MEDS ORDERED: ONDANSETRON 4 MG/2 ML (SDV) Z0FRAN IVP PRN (21:00)
[2020-06-24 23:07] VITALS: BP 97/64
[2020-06-25] VITALS (13 sets, daily range): BP systolic 94–119; BP diastolic 45–80
[2020-06-25] MEDS: NS IV 1000 ML 1,000 ML IV SCH ×4 (00:30→18:28)
[2020-06-25] MEDS: KETOROLAC 30 MG/ML VIAL IVP PRN (02:09)
[2020-06-25 04:23] LABS: BASOPHILS % (AUTO) 0 % (0-10); EOSINOPHILS % (AUTO) 0 % (0-10); HEMATOCRIT 29 % (35-52); HEMOGLOBIN 9.3 g/dL (11.5-16.0); LYMPHOCYTES # (AUTO) 0.3 10^3/uL (1.0-4.0); LYMPHOCYTES % (AUTO) 3 % (12-44); MEAN CORPUSCULAR HEMOGLOBIN 30 pg (25-34); MEAN CORPUSCULAR HGB CONC 32 g/dL (32-36); MEAN CORPUSCULAR VOLUME 92 fL (80-99); MEAN PLATELET VOLUME 10.3 fL (9.0-12.2); MONOCYTES # (AUTO) 0.6 10^3/uL (0.0-1.0); MONOCYTES % (AUTO) 5 % (0-12); NEUTROPHILS # (AUTO) 9.6 10^3/uL (1.8-7.8); NEUTROPHILS % (AUTO) 91 % (42-75); PLATELET COUNT 194 10^3/uL (130-400); WHITE BLOOD COUNT 10.6 10^3/uL (4.3-11.0)
[2020-06-25 04:37] LABS: ALBUMIN 2.9 GM/DL (3.2-4.5); POTASSIUM 3.5 MMOL/L (3.6-5.0)
[2020-06-25 04:38] LABS: CALCIUM 7.1 MG/DL (8.5-10.1)
[2020-06-25 04:39] LABS: TOTAL PROTEIN 5.7 GM/DL (6.4-8.2)
[2020-06-25 04:41] LABS: BILIRUBIN,TOTAL 0.5 MG/DL (0.1-1.0)
[2020-06-25 04:43] LABS: CREATININE SERUM 1.55 MG/DL (0.60-1.30)
--- NOTE | 2020-06-25 07:25 | Progress Note-Post Operative ---
Post-Operative Progess Note Surgeon (s)/Lift Manager (s) Surgeon SANDOVAL THOMAS MD Lift Manager: NONE Pre-Operative Diagnosis RT DISTAL URETERAL STONE Post-Operative Diagnosis SAME Procedure & Operative Findings Date of Procedure 06/25/20 Procedure Performed/Findings CYSTOSCOPY, RT URETEROSOCPY WITH STONE BASKET AND EXTRACTION Anesthesia Type GENERAL Estimated Blood Loss Estimated blood loss (mL): NONE Specimens/Packing Specimens Removed RT URETERAL STONE Packing: NONE SANDOVAL THOMAS MD Jun 25, 2020 07:25
--- NOTE | 2020-06-25 07:25 | Progress Note-Pre Operative ---
Pre-Operative Progress Note H&P Reviewed The H&P was reviewed, patient examined and no changes noted. Date Seen by Provider: Jun 25, 2020 Time Seen by Provider: 07:24 Date H&P Reviewed: Jun 25, 2020 Time H&P Reviewed: 07:24 Pre-Operative Diagnosis: RT DISTAL URETERAL STONE SANDOVAL THOMAS MD Jun 25, 2020 07:25
[2020-06-25] MEDS: SENNA W/DOCUSATE (SENOKOT S) TABLET PO SCH ×2 (07:50→21:08)
[2020-06-25] MEDS ORDERED: MIDAZOLAM 2 MG/2 ML (VERSED) VIAL ONE (09:51)
[2020-06-25] MEDS ORDERED: GLYCOPYRROLATE 0.2 MG/ML (ROBINUL) 2 ML VIAL ONE (09:51)
[2020-06-25] MEDS ORDERED: NEOSTIGMINE 3 MG/3 ML VIAL ONE (09:51)
[2020-06-25] MEDS ORDERED: proPOfol 200 MG/20 ML (DIPRIVAN) VIAL IV ONE (09:51)
[2020-06-25] MEDS ORDERED: fentaNYL INJECTION 100 MCG/2 ML AMP ONE (09:51)
[2020-06-25] MEDS ORDERED: ROCURONIUM 10 MG/ML 5 ML SYRINGE IV ONE ×2 (09:51→10:44)
[2020-06-25] MEDS ORDERED: LIDOCAINE PF 2% 5 ML (XYLOCAINE) VIAL ONE (09:51)
[2020-06-25] MEDS ORDERED: ONDANSETRON 4 MG/2 ML (SDV) Z0FRAN ONE (09:51)
[2020-06-25] MEDS: LACTATED RINGERS 1,000 ML IV PRN ×2 (10:08→11:15)
--- NOTE | 2020-06-25 10:41 | Progress Note - Hospitalist ---
ROSAURA BARON MED STUDENT 06/25/20 1041: Subjective HPI/CC On Admission CC: Sepsis with pyelonephritis with kidney stone HPI: This is a 40yoWF clinic patient of [facility] who has a h/o UTI's and kidney stones who had symptoms of a UTI 2 weeks ago and took AZO but presented today to the ER after sent from [facility] clinic due to tachycardia and fever of 102. Patient was given IVF and IV abx and Dr Contreras consulted for stone on CT scan. Patient feels better and no nausea is reported. Subjective/Events-last exam Pt having minimal pain this am - 07/23 with pain meds on board Complains of minimal nausea Experiencing periodic tingling sensation in right hand, most likely symptom of sepsis In good spirits awaiting arrival of Dr. Contreras for scheduled ureteroscopy with lithotripsy Focused Exam Lactate Level 06/24/20 13:27: Lactic Acid Level 2.84*H 06/24/20 15:30: Lactic Acid Level 1.64 Objective Exam Vital Signs Vital Signs Date Time Temp Pulse Resp B/P (MAP) Pulse Ox O2 Delivery O2 Flow Rate FiO2 06/25/20 07:07 37.4 111 18 110/74 (86) 100 Room Air Capillary Refill : Less Than 3 Seconds General Appearance: No Apparent Distress, WD/WN HEENT: PERRL/EOMI, Pharynx Normal, Moist Mucous Membranes Neck: Full Range of Motion, Non Tender Respiratory: Chest Non Tender, Lungs Clear, No Accessory Muscle Use, No Respiratory Distress Cardiovascular: Regular Rate, Rhythm, No Edema, No Gallop, No JVD, No Murmur, Normal Peripheral Pulses Gastrointestinal: Normal Bowel Sounds, No Pulsatile Mass, Soft Back: No Vertebral Tenderness, CVA Tenderness (R) Extremity: Normal Capillary Refill, No Calf Tenderness, No Pedal Edema Neurologic/Psychiatric: Alert, Oriented x3, Normal Mood/Affect Skin: Normal Color Lymphatic: No Adenopathy Results/Procedures Lab Laboratory Tests 06/24/20 13:27 06/25/20 04:05 Patient resulted labs reviewed. Assessment/Plan Assessment and Plan Assess & Plan/Chief Complaint Assessment: Sepsis Pyelonephritis Kidney stone Plan: 06/25/[address] Contreras to perform ureteroscopy with lithotripsy today Diagnosis/Problems Diagnosis/Problems (1) Pyelonephritis Status: Acute (2) Kidney stone (3) Sepsis Status: Acute Qualifiers: YULIYA CLARKE DO 06/26/20 0543: Subjective HPI/CC On Admission Date Seen by Provider: Jun 26, 2020 Time Seen by Provider: 10:00 Subjective/Events-last exam Pt doing a lot better today Still tachycardic BP good Rocephin maintained Dr. Contreras performed cystoscopy and captured the stone and removed it Urine culture shows E. Coli but sensitivity is pending Objective Exam General Appearance: No Apparent Distress, WD/WN, Chronically ill Respiratory: Lungs Clear Cardiovascular: Regular Rate, Rhythm, Tachycardia Assessment/Plan Assessment and Plan Assess & Plan/Chief Complaint Abx Stone removal Supervisory-Addendum Brief Verification & Attestation Participated in pt care: history, MDM, physical Personally performed: exam, history, MDM, supervision of care Care discussed with: Medical Student Procedures: n/a Results interpretation: Verified all documentation Verification and Attestation of Medical Student E/M Service A medical student performed and documented this service in my presence. I reviewed and verified all information documented by the medical student and made modifications to such information, when appropriate. I personally performed the physical exam and medical decision making. Yuliya Clarke, Jun 26, 2020,05:43 ROSAURA BARON MED STUDENT Jun 25, 2020 10:41 YULIYA CLARKE DO Jun 26, 2020 05:43
[2020-06-25] MEDS ORDERED: PHENYLEPHRINE 100 MCG/ML 10 ML (ANESTHESIA) SYR ONE (10:44)
[2020-06-25] MEDS ORDERED: ESMOLOL 100 MG/10 ML (BREVIBLOC) VIAL ONE (10:45)
[2020-06-25] MEDS ORDERED: HYDROmorphone 2 MG/ML VIAL (DILAUDID) ONE (10:46)
[2020-06-25] MEDS ORDERED: HYDROmorphone 2 MG/ML VIAL (DILAUDID) IV ONE (11:00)
[2020-06-25] MEDS ORDERED: ONDANSETRON 4 MG/2 ML (SDV) Z0FRAN IVP PRN (11:00)
[2020-06-25] MEDS: ENOXAPARIN 40 MG/0.4 ML (LOVENOX) SYR SC SCH ×2 (12:15→21:13)
[2020-06-25] MEDS: ACETAMINOPHEN 325 MG TABLET PO PRN (13:46)
--- NOTE | 2020-06-25 14:25 | Anesthesia-General Post-Op ---
General Patient Condition Mental Status/LOC: Same as Preop Cardiovascular: Satisfactory Nausea/Vomiting: Absent Respiratory: Satisfactory Pain: Controlled Complications: Absent Post Op Complications Complications None Follow Up Care/Instructions Patient Instructions None needed. Anesthesia/Patient Condition Patient Condition Patient is doing well, no complaints, stable vital signs, no apparent adverse anesthesia problems. No complications reported per nursing. D/C home per [facility] Criteria: Yes DIEGO MORRISSEY CRNA Jun 25, 2020 14:25
[2020-06-25] MEDS ORDERED: cefTRIAXone 1,000 MG/SWFI 10 ML IV PUSH IV SCH ×2 (14:30)
--- NOTE | 2020-06-25 15:36 | OPERATIVE REPORT ---
DATE OF SERVICE: 06/25/2020 PREOPERATIVE DIAGNOSIS: Right distal ureteral stone with obstruction and urosepsis. POSTOPERATIVE DIAGNOSIS: Right distal ureteral stone with obstruction and urosepsis. OPERATIONS PERFORMED: Cystoscopy, right ureteroscopy with stone basket and extraction. SURGEON: Keshawn Thomas MD. ANESTHESIA: General. COMPLICATIONS: None. DESCRIPTION OF PROCEDURE: Under satisfactory general anesthesia, the patient in lithotomy position, genitalia were prepped and draped in the usual sterile fashion. Cystoscope was introduced under vision. The right ureteral orifice intramural portion was dilated to the level of the stone to accommodate a 6.9 Omani semi-rigid ureteroscope. The stone has apparently been disimpacted by the dilatation and it was floating. It was size Y, amenable to basket, so I basketed it with a 3-Omani Mcarthur basket under vision and it fell into the bladder, so I removed the ureteroscope, inserted the cystoscope and grasped the stone with a grasping forceps and extracted it and sent for stone analysis. The patient's bladder was emptied. She tolerated the procedure and anesthesia well and was sent to the recovery room in stable condition. Job ID: [id number] DocumentID: [id number] Dictated Date: 06/25/2020 10:58:13 Trade Mark Attorney Date: 06/25/2020 15:35:14 Dictated By: KESHAWN THOMAS MD
[2020-06-25] MEDS ORDERED: DICL20GE TP (15:50)
[2020-06-25] MEDS ORDERED: PROP10TA8 PO (15:50)
[2020-06-25] MEDS ORDERED: ACET-2267 PO (15:50)
[2020-06-25] MEDS ORDERED: OMEP20CA18 PO (15:50)
[2020-06-25] MEDS ORDERED: CYCL10TA9 PO (15:50)
--- NOTE | 2020-06-25 15:51 | NUR ---
SPOKE WITH THE PT AND [facility] REC 03-26-2020 PROPRANOLOL 10MG #180/90DS 03-26-2020 VOLTAREN GEL #1 TUBE 03-26-2020 CYCLOBENZAPRINE 10MG #15 06-16-2019 OMEPRAZOLE 20MG #30/30DS OTC MEDS: TYLENOL
--- NOTE | 2020-06-25 18:25 | NUR ---
REPORT CALLED TO IVETTE DARLING.
--- NOTE | 2020-06-25 18:30 | NUR ---
PATIENT TO ROOM 410 VIA WHEELCHAIR ACCOMPANIED BY [facility] PCT. PATIENT SETTLED IN ROOM. WILL CONTINUE TO MONITOR.
[2020-06-26] VITALS: BP 96/54
[2020-06-26] MEDS: NS IV 1000 ML 1,000 ML IV SCH ×2 (02:10→08:11)
[2020-06-26 04:00] VITALS: BP 115/80
[2020-06-26 06:41] LABS: BASOPHILS % (AUTO) 0 % (0-10); EOSINOPHILS % (AUTO) 0 % (0-10); HEMATOCRIT 27 % (35-52); HEMOGLOBIN 8.3 g/dL (11.5-16.0); LYMPHOCYTES # (AUTO) 0.6 10^3/uL (1.0-4.0); LYMPHOCYTES % (AUTO) 7 % (12-44); MEAN CORPUSCULAR HEMOGLOBIN 29 pg (25-34); MEAN CORPUSCULAR HGB CONC 31 g/dL (32-36); MEAN CORPUSCULAR VOLUME 93 fL (80-99); MEAN PLATELET VOLUME 11.1 fL (9.0-12.2); MONOCYTES # (AUTO) 0.4 10^3/uL (0.0-1.0); MONOCYTES % (AUTO) 5 % (0-12); NEUTROPHILS # (AUTO) 7.5 10^3/uL (1.8-7.8); NEUTROPHILS % (AUTO) 87 % (42-75); PLATELET COUNT 178 10^3/uL (130-400); WHITE BLOOD COUNT 8.6 10^3/uL (4.3-11.0)
[2020-06-26 06:51] LABS: ALBUMIN 2.8 GM/DL (3.2-4.5)
[2020-06-26 06:54] LABS: TOTAL PROTEIN 5.8 GM/DL (6.4-8.2)
[2020-06-26 06:56] LABS: BILIRUBIN,TOTAL 0.2 MG/DL (0.1-1.0)
[2020-06-26 06:58] LABS: CREATININE SERUM 1.51 MG/DL (0.60-1.30)
[2020-06-26 08:00] VITALS: BP 108/72
[2020-06-26] MEDS: SENNA W/DOCUSATE (SENOKOT S) TABLET PO SCH (08:11)
[2020-06-26] MEDS: ENOXAPARIN 40 MG/0.4 ML (LOVENOX) SYR SC SCH (08:11)
[2020-06-26 12:00] VITALS: BP 118/78
[2020-06-26] MEDS ORDERED: CEFD300C3 PO (12:07)
--- NOTE | 2020-06-26 12:08 | Discharge Summary ---
Discharge Summary Hospital Course Was the Problem List Reviewed?: Yes Problems/Dx: (1) Pyelonephritis Status: Acute (2) Kidney stone (3) Sepsis Status: Acute Qualifiers: Hospital Course Date of Admission: Jun 24, 2020 at 14:26 Admission Diagnosis : Family Physician/Provider: Elisabet Machado MD Date of Discharge: 06/26/20 Discharge Diagnosis: acute pyelo, kidney stone impacted, MARGOT Hospital Course: Beatriz Pedro is a 40yoWF with a h/o UTI's and kidney stones who began having UTI symptoms 2 weeks ago which she treated at home with AZO. Her symptoms worsened which prompted her to visit [facility] on 06/24/20 and they sent pt to ED by private vehicle due to tachycardia and fever of 102. She was given IVF and IV abx and urology was consulted for right ureteral stone on CT scan. She was admitted to [facility] the night of 06/24 with relief of symptoms controlled by pain medications and Zofran. On 06/25 urology performed cystoscopy with right ureteroscopy and extraction of stone. She is discharged on 06/26/20 with complete resolution of symptoms, improving kidney function, and instructions to continue abx and aggressively hydrate. ROSAURA BARON MED STUDENT Labs and Pending Lab Test: Laboratory Tests 06/25/20 14:46: Number of Stones [Pending], Stone Size [Pending], Stone Weight [Pending], Stone Description [Pending], Stone Composition [Pending] 06/26/20 05:54: White Blood Count 8.6, Red Blood Count 2.86L, Hemoglobin 8.3L, Hematocrit 27L, Mean Corpuscular Volume 93, Mean Corpuscular Hemoglobin 29, Mean Corpuscular Hemoglobin Concent 31L, Red Cell Distribution Width 14.5, Platelet Count 178, Mean Platelet Volume 11.1, Immature Granulocyte % (Auto) 1, Neutrophils (%) (Auto) 87H, Lymphocytes (%) (Auto) 7L, Monocytes (%) (Auto) 5, Eosinophils (%) (Auto) 0, Basophils (%) (Auto) 0, Neutrophils # (Auto) 7.5, Lymphocytes # (Auto) 0.6L, Monocytes # (Auto) 0.4, Eosinophils # (Auto) 0.0, Basophils # (Auto) 0.0, Immature Granulocyte # (Auto) 0.1, Sodium Level 136, Potassium Level 4.0, Chloride Level 110H, Carbon Dioxide Level 15L, Anion Gap 11, Blood Urea Nitrogen 32H, Creatinine 1.51H, Estimat Glomerular Filtration Rate 39, BUN/Creatinine R atio 21, Glucose Level 220H, Calcium Level 7.0L, Corrected Calcium 8.0L, Total Bilirubin 0.2, Aspartate Amino Transf (AST/SGOT) 14, Alanine Aminotransferase (ALT/SGPT) 25, Alkaline Phosphatase 69, Total Protein 5.8L, Albumin 2.8L Microbiology 06/24/20 Blood Culture - Preliminary, Resulted No growth 06/24/20 Urine Culture - Preliminary, Resulted Escherichia coli Mixed Bacterial Selam Home Meds Active Cefdinir 300 Mg Capsule 300 Mg PO BID Reported Tylenol Extra Strength (Acetaminophen) 500 Mg Tablet 1,000 Mg PO Q8H PRN Cyclobenzaprine HCl 10 Mg Tablet 10 Mg PO DAILY PRN Voltaren Arthritis Pain (Diclofenac Sodium) 20 Gm Gel..gram. 4 Gm TP BID PRN Omeprazole 20 Mg Capsule.dr 20 Mg PO DAILY Propranolol HCl 10 Mg Tablet 10 Mg PO BID Assessment/Pt Instructions [facility] [address] Contreras 2 weeks Discharge Planning: <30 minutes discharge planning Discharge Physical Examination Vital Signs Vital Signs Date Time Temp Pulse Resp B/P (MAP) Pulse Ox O2 Delivery O2 Flow Rate FiO2 06/26/20 08:00 Room Air 06/26/20 08:00 36.1 83 20 108/72 (84) 98 06/25/20 11:55 2 General Appearance: No Apparent Distress, WD/WN, Chronically ill Respiratory: Lungs Clear Cardiovascular: Regular Rate, Rhythm Neurologic/Psychiatric: Alert, Oriented x3, No Motor/Sensory Deficits, Normal M ood/Affect Allergies: Coded Allergies: No Known Drug Allergies (Unverified , 05/02/10) Discharge Summary Date of Admission Jun 24, 2020 at 14:26 Date of Discharge Discharge Date: Jun 26, 2020 Admission Diagnosis Assessment: Sepsis Pyelonephritis Kidney stone Plan: IVF IV abx Dr Contreras appreciated Discharge Diagnosis Abx Stone removal (1) Pyelonephritis Status: Acute (2) Kidney stone (3) Sepsis Status: Acute Qualifiers: MELLISSA CLARKE DO Jun 26, 2020 12:08
--- NOTE | 2020-06-26 13:11 | Progress Note ---
ROSAURA BARON MED STUDENT 06/26/20 1311: Progress Note Beatriz Pedro is a 40yoWF with a h/o UTI's and kidney stones who began having UTI symptoms 2 weeks ago which she treated at home with AZO. Her symptoms worsened which prompted her to visit [facility] on 06/24/20 and they sent pt to ED by private vehicle due to tachycardia and fever of 102. She was given IVF and IV abx and urology was consulted for right ureteral stone on CT scan. She was admitted to [facility] the night of 06/24 with relief of symptoms controlled by pain medications and Zofran. On 06/25 urology performed cystoscopy with right uretero scopy and extraction of stone. She is discharged on 06/26/20 with complete resolution of symptoms, improving kidney function, and instructions to continue abx and aggressively hydrate. MELLISSA CLARKE DO 06/26/203: Supervisory-Addendum Brief Verification & Attestation Participated in pt care: history, MDM, physical Personally performed: exam, history, MDM, supervision of care Care discussed with: Medical Student Procedures: n/a Results interpretation: Verified all documentation Verification and Attestation of Medical Student E/M Service A medical student performed and documented this service in my presence. I reviewed and verified all information documented by the medical student and made modifications to such information, when appropriate. I personally performed the physical exam and medical decision making. Mellissa Clarke, Jun 26, 2020,21:13 ROSAURA BARON MED STUDENT Jun 26, 2020 13:11 MELLISSA CLARKE DO Jun 26, 2020 21:13
== END 2020-06-26 15:30 | disposition home or self-care (01) | DRG 854 ==
LOC: EDUNIT# 13:01 → ER 13:03 → CSD 14:26 → 4TH 06-25 18:30
PROVIDERS: ADMIT Internal Medicine; ATTEND Internal Medicine
PROC: 0TC68ZZ Extirpation of Matter from Right Ureter, Via Natural or Artificial Opening Endoscopic (ICD-10-PCS; principal; 2020-06-25 10:16)
DX: A41.51 Sepsis due to Escherichia coli [E. coli] (principal); N13.6 Pyonephrosis; Z68.41 Body mass index [BMI] 40.0-44.9, adult; N17.9 Acute kidney failure, unspecified; N20.0 Calculus of kidney; E66.9 Obesity, unspecified; J45.909 Unspecified asthma, uncomplicated; I10 Essential (primary) hypertension; K21.9 Gastro-esophageal reflux disease without esophagitis; M41.9 Scoliosis, unspecified; M54.9 Dorsalgia, unspecified; F90.9 Attention-deficit hyperactivity disorder, unspecified type; F41.9 Anxiety disorder, unspecified; F32.9 Major depressive disorder, single episode, unspecified; Z79.2 Long term (current) use of antibiotics; Z79.52 Long term (current) use of systemic steroids; Z87.891 Personal history of nicotine dependence
CPT/HCPCS: 36415; 74018; 74176; 76000; 80053; 81000; 83605; 84703; 85007; 85025; 85027; 87040; 87077; 87081; 87088; 87186; 87635; 88300

== ENCOUNTER 2021-03-30 20:35 | Emergency (ER) | payer OTHER ==
[~2021-03-30] VITALS: Ht 173 cm; Wt 136.0 kg
[~2021-03-30 20:35] MED LIST changes: +ACET-2267 PO; +CEFD300C3 PO; +DICL20GE TP; +OMEP20CA18 PO; +PROP10TA8 PO
--- NOTE | 2021-03-30 21:20 | ED Lower Extremity ---
General Chief Complaint: Lower Extremity Stated Complaint: L ANKLE PAIN Source: patient Exam Limitations: no limitations History of Present Illness Date Seen by Provider: Mar 30, 2021 Time Seen by Provider: 21:18 Initial Comments Patient is a 40-year-old female who presents ED with left lateral ankle pain. She states around 7:00 she stood up felt a sharp pain in her left ankle and fell to the ground. She reports inward rotation of her left ankle. She is able to stand and bear weight but is limited secondary to the pain. She reports swelling to the left lateral foot and left lateral ankle. No history of previous fracture. She took 2 extra strength Tylenol at home with some improvement. Patient denies any calf pain, knee pain, head injury, chest pain, cough, shortness of breath, vomiting. Allergies and Home Medications Allergies Coded Allergies: No Known Drug Allergies (Unverified , 05/02/10) Patient Home Medication List Home Medication List Reviewed: Yes Acetaminophen (Tylenol Extra Strength) 500 Mg Tablet, 1,000 MG PO Q8H PRN for PAIN-MILD (1-4), (Reported) Entered as Reported by: SONALI SCHULTZ on 06/25/20 155 Cefdinir (Cefdinir) 300 Mg Capsule, 300 MG PO BID Prescribed by: MELLISSA CLARKE on 06/26/20 1207 Cyclobenzaprine HCl (Cyclobenzaprine HCl) 10 Mg Tablet, 10 MG PO DAILY PRN for M USCLE SPASMS, (Reported) Entered as Reported by: SONALI SCHULTZ on 06/25/20 155 Diclofenac Sodium (Voltaren Arthritis Pain) 20 Gm Gel..gram., 4 GM TP BID PRN for PAIN-BREAKTHROUGH, (Reported) Entered as Reported by: SONALI SCHULTZ on 06/25/20 155 Naproxen (Naprosyn) 500 Mg Tablet, 500 MG PO BID Prescribed by: GURDEEP VINSON on 03/30/212207 Omeprazole (Omeprazole) 20 Mg Capsule.dr, 20 MG PO DAILY, (Reported) Entered as Reported by: SONALI SCHULTZ on 06/25/20 155 Propranolol HCl (Propranolol HCl) 10 Mg Tablet, 10 MG PO BID, (Reported) Entered as Reported by: SONALI SCHULTZ on 06/25/20 155 Review of Systems Constitutional: see HPI EENTM: see HPI Respiratory: see HPI; No cough, No dyspnea on exertion Cardiovascular: see HPI; No chest pain Gastrointestinal: No RUQ, No LUQ, No RLQ, No LLQ Musculoskeletal: joint pain, joint swelling, muscle pain Skin: see HPI Psychiatric/Neurological: See HPI All Other Systems Reviewed Negative Unless Noted: Yes Past Gzuxnzl-Vfwdhz-Nwurfq Hx Immunizations Up To Date Tetanus Booster (TDap): Unknown PED Vaccines UTD: Yes Seasonal Allergies Seasonal Allergies: No Past Medical History Surgeries: Yes Gallbladder, Tubal Ligation Respiratory: Yes Asthma Currently Using CPAP: No Currently Using BIPAP: No Cardiac: Yes Hypertension Neurological: Yes Headaches /Migraines 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 oz. 108.498595ct; 41.00 BMI Method:Stated General Appearance: WD/WN HEENT: PERRL/EOMI, normal ENT inspection, TMs normal, pharynx normal Neck: non-tender, full range of motion, supple Cardiovascular: regular rate, rhythm, no edema, no gallop, no JVD Respiratory: chest non-tender, lungs clear, normal breath sounds, no respiratory distress Gastrointestinal: normal bowel sounds, non tender, soft Back: normal inspection, no CVA tenderness Ankles: left ankle bone tenderness, left ankle limited range of motion, left ankle soft tissue tenderness, left ankle swelling Neurologic/Tendon: normal sensation, normal motor functions, normal tendon functions 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 She is able to stand number way. Swelling noted. Work him in Ferdinand wrap, ice and anti-inflammatories. Orthopedic outpatient follow-up in the next 7 to 10 days if pain progress. Return precautions were discussed with patient. She agrees with plan of action. Impression Primary Impression: Ankle sprain Disposition: 01 HOME, SELF-CARE Condition: Stable Departure-Patient Inst. Decision time for Depature: 22:06 Referrals: [facility] (PCP/Family) Primary Care Physician TUNDE KEY MD Patient Instructions: Sprain (DC) Scripts Naproxen (Naprosyn) 500 Mg Tablet 500 MG PO BID, #20 TAB Prov: SID HAQ 03/30/21 Work/School Note: Work Release Form Date Seen in the Emergency Department: Mar 30, 2021 Return to Work: Apr 01, 2021 Restrictions: No Restrictions Other Restrictions Listed Below: Limit walking for long duration until symptoms improve. SID HAQ Mar 30, 2021 21:20
[2021-03-30] MEDS ORDERED: NAPR-1071 PO (22:08)
--- NOTE | 2021-03-30 22:11 | Diagnostic Imaging Report ---
INDICATION: lateral ankle pain COMPARISON: None. FINDINGS: 3 views of the left ankle were obtained. There is no acute fracture or dislocation. No focal osseous lesions are seen. The surrounding soft tissue structures are unremarkable. There are no radiopaque foreign bodies. IMPRESSION: 1. No acute fracture or dislocation in the left ankle. Dictated by: Dictated on workstation # [id number]
--- NOTE | 2021-03-30 22:12 | Diagnostic Imaging Report ---
INDICATION: Ankle pain. Injury. COMPARISON: None. FINDINGS: 3 views of the left foot demonstrate no acute fracture or dislocation. There are no focal osseous lesions. There is no soft tissue swelling. Joint spaces are well maintained. No radiopaque foreign bodies are seen. IMPRESSION: No acute fractures or dislocations of the left foot. Dictated by: Dictated on workstation # [id number]
[2021-03-30 23:34] VITALS: BP 146/84
== END 2021-03-30 22:18 | disposition home or self-care (01) ==
LOC: EDUNIT# 20:35 → ER 20:36
DX: S93.402A Sprain of unspecified ligament of left ankle, initial encounter (principal); I10 Essential (primary) hypertension; J45.909 Unspecified asthma, uncomplicated; E66.9 Obesity, unspecified; K21.9 Gastro-esophageal reflux disease without esophagitis; Z68.41 Body mass index [BMI] 40.0-44.9, adult; Z79.899 Other long term (current) drug therapy; X50.1XXA Overexertion from prolonged static or awkward postures, initial encounter
CPT/HCPCS: 73610; 73630